=== PATIENT | male | born 1935 | race Caucasian/White ===

== ENCOUNTER 2016-11-16 08:04 | Inpatient (IN) ==
[2016-11-16 09:45] LABS: Basophils % 0.4 %; Eosinophils # 0.2 K/mcL (0.0-0.6); Eosinophils % 3.6 %; Hematocrit 28.7 % (37.5-50.1); Immature Granulocytes % 0.7 % (0-4); Lymphocytes % 23.1 %; Mean Corpuscular HGB Conc 31.4 g/dL (31.6-35.5); Mean Corpuscular Hemoglobin 25.9 pg (28.0-33.3); Mean Corpuscular Volume 82.5 fL (83.0-100.0); Mean Platelet Volume 9.7 fL (9.4-12.4); Monocytes # 0.4 K/mcL (0.0-1.3); Monocytes % 9.1 %; Neutrophils # 2.8 K/mcL (1.6-8.9); Platelet Count 280 K/mcL (140-400); Red Blood Count 3.48 M/mcL (4.19-5.50); Red Cell Distribution Width 13.9 % (11.5-14.5); Segmented Neutrophils % 63.1 %
[2016-11-16 09:50] LABS: INR 1.2; Prothrombin Time 13.1 Seconds (9.4-12.1)
[2016-11-16 09:57] LABS: Calcium 9.8 mg/dL (8.6-10.8); Potassium 3.8 mEq/L (3.5-4.5)
[2016-11-16] MEDS ORDERED: D5% in Water 1,000 ML IVC PRN (10:58)
[2016-11-16] MEDS ORDERED: Dextrose Gel 15 GM PO PRN ×2 (10:58)
[2016-11-16] MEDS ORDERED: *HR* Dextrose 50 % in Water (Syg) 50 ML SYRINGE IVP PRN (10:58)
--- NOTE | 2016-11-16 11:40 | Internal Medicine Consult Note ---
<Bello Bhatti - Last Filed: 11/16/16 20:17> Date of Encounter: 11/16/16 Internal Medicine - CN: HPI - Data of Consult Requesting Physician: Willi Cobb, - Consult Narrative History of present illness: Mr. Lynch is a 81 year old male Internal Medicine - CN: Meds Amoxicillin [Amoxil] 500 mg PO BID 11/05/16 [History] Aspirin [Lo-Dose Aspirin EC] 81 mg PO DAILY 11/05/16 [History] Carvedilol [Coreg] 25 mg PO BID 11/05/16 [History] Cholecalciferol (D-3) [Vitamin D] 1,000 mg PO DAILY 11/05/16 [History] Furosemide [Lasix] 80 mg PO BID 11/05/16 [History] HYDROcodone/Acet 5/325 mg [[place] 5-325 mg] 1 tab PO Q6H PRN #28 tab 11/05/16 [Rx ] Lisinopril [Zestril] 20 mg PO DAILY 11/05/16 [History] Multivit-Min/FA/Lycopen/Lutein [Centrum Silver Tablet] 1 tab PO DAILY 11/05/16 [ History] Tamsulosin [Flomax] 0.8 mg PO DAILY 11/05/16 [History] amLODIPine [Norvasc] 5 mg PO DAILY 11/05/16 [History] metFORMIN [Glucophage] 500 mg PO BIDWM 11/05/16 [History] Ferrous Sulfate [Iron] 325 mg PO TID 11/16/16 [History] Simvastatin [Zocor] 20 mg PO HS 11/16/16 [History] Allergies morphine Allergy (Verified 11/16/16 13:21) Hallucinating Has taken hydrocodone with no hallucinations Penicillins [PCN] Allergy (Verified 11/05/16 08:42) Hives Internal Medicine - CN: Exam - Constitutional Vitals: Temp Pulse Resp BP Pulse Ox 97.4 F L 59 18 103/54 97 11/16/16 15:57 11/16/16 19:00 11/16/16 15:57 11/16/16 19:00 11/16/16 15:57 Internal Medicine - CN: Reslt - Labs CBC & Chem 7: 11/16/16 09:18 11/16/16 09:18 Labs: Short CBC 11/16/16 Range/Units 09:18 WBC 4.5 (4.3-11.1) K/mcL Hgb 9.0 L (12.9-16.9) g/dL Hct 28.7 L (37.5-50.1) % Plt Count 280 (140-400) K/mcL Neutrophils # 2.8 (1.6-8.9) K/mcL BMP 11/16/16 09:18 Sodium 142 Potassium 3.8 Chloride 104 Carbon Dioxide 25 BUN 46 H Creatinine 2.23 H Glucose 102 H Calcium 9.8 - ABG Interpretation ABG results: PT/INR, D-dimer PT 13.1 Seconds (9.4-12.1) H 11/16/16 09:18 - Impressions Impressions Foot X-Ray 11/16/16 08:40 IMPRESSION: Other than a change in the configuration of the multiple high-density foci near the metatarsal-phalangeal joint of the 5th toe, there has been no gross interval change since the prior examination. Given the overlap of these high-density foci on the prior examination, a subtle increase in the bone destruction/ erosion at this site would be difficult to exclude entirely. D/ / Gary Mccrary / Gary Mccrary Interpreting Provider: Gary Mccrary Consult Discharge Plan - Plan Referrals: Eddie Mark MD [Primary Care Provider] - 11/20/16 11:00 am - Attending Attestation I examined this patient and my medical decision-making was reviewed with the Advanced Practice Nurse. I agree with the documented findings, disposition and treatment plan as described except to the extent set forth below. Continue holding metformin. I recommend not restarting this medication upon discharge due to chronic kidney disease with creatinine greater than 2 with baseline. Insulin sliding scale while in the hospital. He will need an ischemic workup if more invasive surgery is needed. <Aubree Jenkins - Last Filed: 11/16/16 22:53> Date of Encounter: 11/16/16 Time of Encounter: 11:32 - Assessment and Plan (1) Toe ulcer Current Visit: Yes Status: Acute Assessment and plan: Plan for patient to undergo angiogram today with vascular surgery and amputation of toe by Dr. Cobb. Qualifiers: Laterality: right Non-pressure ulcer stage: unspecified non-pressure ulcer stage Qualified Code(s): L97.519 - Non-pressure chronic ulcer of other part of right foot with unspecified severity (2) Type 2 diabetes mellitus Current Visit: Yes Status: Acute Assessment and plan: Hold metformin check blood sugars Q6hr sliding scale correction dose Q6hr hypoglycemic protocol. Qualifiers: Diabetes mellitus complication status: with unspecified complications Diabetes mellitus ad terminal makeup operator insulin use: without ad terminal makeup operator use Qualified Code( s): E11.8 - Type 2 diabetes mellitus with unspecified complications (3) Hypertension Current Visit: Yes Status: Acute Assessment and plan: Patient's blood pressure has been controlled since arrival. HR has been in the 50s. Will continue home doses of amlodipine. Reduce coreg to 6.25mg BID Hold coreg for HR < 60. Hold lisinopril and lasix to protect kidneys as patient undergoing angiogram today. Qualifiers: Hypertension type: essential hypertension Qualified Code(s): I10 - Essential (primary) hypertension (4) CAD (coronary artery disease) Current Visit: Yes Status: Acute Assessment and plan: Patient with CAD s/p 4-vessel CABG and stent placements. Patient denies any chest pain. EKG shows sinus bradycardia with 1st degree AV block, no ST elevations or depressions. Will continue beta naomie, aspirin, and statin. Qualifiers: Coronary Disease-Associated Artery/Lesion type: [place] artery [place] vs. transplanted heart: [place] heart Associated angina: angina presence unspecified Qualified Code(s): I25.10 - Atherosclerotic heart disease of [place] coronary artery without angina pectoris (5) CKD (chronic kidney disease) Current Visit: Yes Status: Chronic Assessment and plan: Patient with CKD, and follows with Dr. Mckeon. Today's creatinine of 2.23 is consistent with recent baseline. Patient getting fluids and mucomyst prior to angiogram to protect kidneys. Will hold morning dose of lasix and lisinopril. Recheck chemistry tomorrow. Qualifiers: Chronic kidney disease stage: stage 4 (severe) Qualified Code(s): N18.4 - Chronic kidney disease, stage 4 (severe) (6) DVT prophylaxis Current Visit: Yes Status: Acute Assessment and plan: Start heparin 5000u SQ TID after surgery. Internal Medicine - CN: HPI - Data of Consult Patient: known to practice within the last 3 years Consult date: 11/16/16 Requesting Physician: Willi Cobb, - Consult Narrative Reason for consult: management of medical conditions History of present illness: Mr. Lynch is a 81 year old male with hypertension, diabetes, hyperlipidemia, chronic kidney disease, coronary artery disease status post CABG and stent placement, peripheral vascular disease who presents to the Hospital day for management of his right foot ulcer. The plan is for Dr. Mejia of vascular surgery to perform a right leg angiogram, and for Dr. Cobb to amputate his right 5th toe. We have been consulted to manage his multiple medical conditions during his admission. Patient reports he does have intermittent pain in his right foot and toe, he describes as sharp, stabbing, dull, aching, and comes and goes. He denies any headache, lightheadedness, chest pain, palpitations, shortness of breath, nausea, vomiting, fever, chills, sweats, body aches. He is only able to walk short distances before he gets winded. Labs from today reveal anemia with hemoglobin of 9.0, consistent with recent results, chronic kidney disease with creatinine of 2.23, also consistent with previous results EKG showed sinus bradycardia with first-degree AV block heart rate of 51. On exam, patient alert and oriented, in no acute distress. Lungs are clear bilaterally to auscultation. Heart had regular rhythm, heart rate in the 50s, loud systolic murmur. Past Med Surg Social Fam HX - Past Medical History Medical history: arthritis, cardiomyopathy, CHF, coronary artery disease, diabetes, hypertension, myocardial infarction, renal disease, other Psychiatric history: no psych history - Past Surgical History Surgical History: arthroscopy, coronary bypass (CABG), hip replacement, knee replacement, orthopedic, other, other - Social History Smoking Status: Former smoker Smokeless Tobacco Status: No Alcohol use: none Drug use: none - Family History Paternal Family Member Ethnicity: Non- Living Status: Hx Family Cardiac Disorders: Yes Hx Family Respiratory Disorders: Yes - Constitutional Constitutional: no chills, no fever(s), no night sweats - EENT Eyes: no change in vision Ears: no ear pain, no tinnitus Nose, mouth and throat: no facial pain, no nasal congestion, no sinus pain - Cardiovascular Cardiovascular ROS IM: dyspnea on exertion, no chest pain, no diaphoresis, no dyspnea, no lightheadedness, no palpitations - Respiratory Respiratory: dyspnea on exertion, no cough, no dyspnea, no wheezing, no excessive phlegm production - Gastrointestinal Gastrointestinal: no abdominal pain, no constipation, no diarrhea, no nausea, no vomiting - Genitourinary Genitourinary ROS male: no dysuria - Integumentary Integumentary IM: skin ulcer, no rash - Neurological Neurological ROS: no dizziness, no tingling Internal Medicine - CN: Exam - Constitutional Vitals: Temp Pulse Resp BP Pulse Ox 97.5 F L 67 18 114/64 100 11/16/16 09:05 11/16/16 09:05 11/16/16 09:05 11/16/16 09:05 11/16/16 09:05 General appearance IM: Present: A&O X 3, pleasant, no acute distress - Head Head exam: Present: atraumatic, normocephalic - Eye Eye exam: Present: PERRL, conjuntiva pink, sclera anicteric - ENT ENT exam: Present: mucous membranes moist - Neck Neck exam general surgery: Present: normal inspection, supple, trachea midline - Respiratory Respiratory exam: Present: CTAB. Absent: accessory muscle use, rales, rhonchi, wheezes - Cardiovascular Cardiovascular exam IM: Present: bradycardia, +S1, +S2, systolic murmur - GI/Abdominal GI/Abdominal exam IM: Present: normal bowel sounds, soft, no peritoneal signs. Absent: distended, tenderness - Extremities Exam Extremities exam IM: Present: pedal edema, tenderness, warm, radial pulses palpable and symetrical Internal Medicine - CN: Reslt - Labs CBC & Chem 7: 11/16/16 09:18 11/16/16 09:18 Labs: All Lab Results (24 Hours) 11/16/16 11/16/16 11/16/16 Range/Units 09:18 09:18 09:18 WBC 4.5 (4.3-11.1) K/mcL RBC 3.48 L (4.19-5.50) M/mcL Hgb 9.0 L (12.9-16.9) g/dL Hct 28.7 L (37.5-50.1) % MCV 82.5 L (83.0-100.0) fL MCH 25.9 L (28.0-33.3) pg MCHC 31.4 L (31.6-35.5) g/dL RDW 13.9 (11.5-14.5) % Plt Count 280 (140-400) K/mcL MPV 9.7 (9.4-12.4) fL Immature Gran % 0.7 (0-4) % Seg Neutrophils % 63.1 % Lymphocytes % 23.1 % Monocytes % 9.1 % Eosinophils % 3.6 % Basophils % 0.4 % Neutrophils # 2.8 (1.6-8.9) K/mcL Lymphocytes # 1.0 (0.6-4.6) K/mcL Monocytes # 0.4 (0.0-1.3) K/mcL Eosinophils # 0.2 (0.0-0.6) K/mcL Basophils # 0.0 (0.0-0.2) K/mcL ESR 113 H (0-10) mm/hr PT 13.1 H (9.4-12.1) Seconds INR 1.2 Sodium (136-145) mEq/L Potassium (3.5-4.5) mEq/L Chloride (98-109) mEq/L Carbon Dioxide (19-29) mEq/L BUN (8-26) mg/dL Creatinine (0.72-1.25) mg/dL Est GFR ( Amer) (> 60) Est GFR (Non-Af Amer) (> 60) BUN/Creatinine Ratio (6-26) Glucose (70-99) mg/dL Calculated Osmolality (280-300) Calcium (8.6-10.8) mg/dL 11/16/16 Range/Units 09:18 WBC (4.3-11.1) K/mcL RBC (4.19-5.50) M/mcL Hgb (12.9-16.9) g/dL Hct (37.5-50.1) % MCV (83.0-100.0) fL MCH (28.0-33.3) pg MCHC (31.6-35.5) g/dL RDW (11.5-14.5) % Plt Count (140-400) K/mcL MPV (9.4-12.4) fL Immature Gran % (0-4) % Seg Neutrophils % % Lymphocytes % % Monocytes % % Eosinophils % % Basophils % % Neutrophils # (1.6-8.9) K/mcL Lymphocytes # (0.6-4.6) K/mcL Monocytes # (0.0-1.3) K/mcL Eosinophils # (0.0-0.6) K/mcL Basophils # (0.0-0.2) K/mcL ESR (0-10) mm/hr PT (9.4-12.1) Seconds INR Sodium 142 (136-145) mEq/L Potassium 3.8 (3.5-4.5) mEq/L Chloride 104 (98-109) mEq/L Carbon Dioxide 25 (19-29) mEq/L BUN 46 H (8-26) mg/dL Creatinine 2.23 H (0.72-1.25) mg/dL Est GFR ( Amer) 35 L (> 60) Est GFR (Non-Af Amer) 28 L (> 60) BUN/Creatinine Ratio 21 (6-26) Glucose 102 H (70-99) mg/dL Calculated Osmolality 306 H (280-300) Calcium 9.8 (8.6-10.8) mg/dL - ABG Interpretation ABG results: PT/INR, D-dimer PT 13.1 Seconds (9.4-12.1) H 11/16/16 09:18
[2016-11-16] MEDS: 0.9 % Sodium Chloride 1,000 ML IVC SCH ×2 (12:20→17:12)
[2016-11-16] MEDS: *HR* Acetylcysteine 20% 600 MG/3 ML ORAL SYRINGE PO SCH ×2 (12:20→21:56)
[2016-11-16] MEDS: Insulin LISPRO 300 UNITS/3 ML VIAL SQ SCH ×2 (12:49→17:12)
[2016-11-16] MEDS ORDERED: Naloxone 0.4 MG/ML INJ IVP PRN (13:07)
--- NOTE | 2016-11-16 13:19 | Podiatry History & Physical ---
History of Present Illness Chief complaint: Gangrene of small toe right foot HPI: Mr. Lynch is a 81 year old male with hx of foot ulcer sub#5 right with recent resection of #5 metatarsal head. Mr. Lynch exhibited discoloration/brusing of toe the night before procedure and thought he may have bumped his toe. Subsequent regression of toe/perfusion now with jose martin gangrene of toe #5. No chest pain no shortness of breath bowel/bladder dysfunction. C/o of right leg pain consistent with neuropathy and likely compromised arterial perfusion. See NIV studies with non-compressible vessels of right LE All Systems Reviewed: A 10-system review of systems was performed and is negative for pertinent findings except as documented above in the HPI. Past Med Surg Social Fam HX - Past Medical History Medical history: arthritis, cardiomyopathy, CHF, coronary artery disease, diabetes, hypertension, myocardial infarction, renal disease, other Psychiatric history: no psych history - Past Surgical History Surgical History: arthroscopy, coronary bypass (CABG), hip replacement, knee replacement, orthopedic, other, other - Social History Smoking Status: Former smoker Smokeless Tobacco Status: No Alcohol use: none Drug use: none - Family History Paternal Family Member Ethnicity: Non- Living Status: Hx Family Cardiac Disorders: Yes Hx Family Respiratory Disorders: Yes Medications and Allergies Amoxicillin [Amoxil] 500 mg PO BID 11/05/16 [History] Aspirin [Lo-Dose Aspirin EC] 81 mg PO DAILY 11/05/16 [History] Carvedilol [Coreg] 25 mg PO BID 11/05/16 [History] Cholecalciferol (D-3) [Vitamin D] 1,000 mg PO DAILY 11/05/16 [History] Furosemide [Lasix] 80 mg PO BID 11/05/16 [History] HYDROcodone/Acet 5/325 mg [[place] 5-325 mg] 1 tab PO Q6H PRN #28 tab 11/05/16 [Rx ] Lisinopril [Zestril] 20 mg PO DAILY 11/05/16 [History] Multivit-Min/FA/Lycopen/Lutein [Centrum Silver Tablet] 1 tab PO DAILY 11/05/16 [ History] Tamsulosin [Flomax] 0.8 mg PO DAILY 11/05/16 [History] amLODIPine [Norvasc] 5 mg PO DAILY 11/05/16 [History] metFORMIN [Glucophage] 500 mg PO BIDWM 11/05/16 [History] Ferrous Sulfate [Iron] 325 mg PO TID 11/16/16 [History] Simvastatin [Zocor] 20 mg PO HS 11/16/16 [History] Allergies morphine Allergy (Verified 11/16/16 13:21) Hallucinating Has taken hydrocodone with no hallucinations Penicillins [PCN] Allergy (Verified 11/05/16 08:42) Hives Physical Exam - Constitutional Vitals: Temp Pulse Resp BP Pulse Ox 97.8 F 56 18 118/43 100 11/16/16 12:33 11/16/16 12:50 11/16/16 12:33 11/16/16 12:33 11/16/16 12:33 General appearance: average body habitus, cooperative - Extremities Exam Extremities exam: Present: pedal edema - Expanded Lower Extremities Exam Foot/Toe exam: Present: tenderness at base of 5th metatarsal (Gangrene of #5 toe ) - Skin Additional comments: Dehisence of incision of 5th metatarsal head resection Results - Labs Result Diagrams: 11/16/16 09:18 11/16/16 09:18 Labs: Abnormal lab results RBC 3.48 M/mcL (4.19-5.50) L 11/16/16 09:18 Hgb 9.0 g/dL (12.9-16.9) L 11/16/16 09:18 Hct 28.7 % (37.5-50.1) L 11/16/16 09:18 MCV 82.5 fL (83.0-100.0) L 11/16/16 09:18 MCH 25.9 pg (28.0-33.3) L 11/16/16 09:18 MCHC 31.4 g/dL (31.6-35.5) L 11/16/16 09:18 ESR 113 mm/hr (0-10) H 11/16/16 09:18 PT 13.1 Seconds (9.4-12.1) H 11/16/16 09:18 BUN 46 mg/dL (8-26) H 11/16/16 09:18 Creatinine 2.23 mg/dL (0.72-1.25) H 11/16/16 09:18 Est GFR ( Amer) 35 (> 60) L 11/16/16 09:18 Est GFR (Non-Af Amer) 28 (> 60) L 11/16/16 09:18 Glucose 102 mg/dL (70-99) H 11/16/16 09:18 Calculated Osmolality 306 (280-300) H 11/16/16 09:18 C-Reactive Protein 33 mg/L (Less than 5) H 11/16/16 09:18 H & H 11/16/16 Range/Units 09:18 Hgb 9.0 L (12.9-16.9) g/dL Hct 28.7 L (37.5-50.1) % All other labs normal. - Diagnostic results Ankle/Foot x-ray: pending Assessment and Plan (1) Gangrene of toe Current visit: Yes Status: Acute Assessemt;#1 Gangrene of toe #5 right #2 DM with Angiopathy, neuropathy and nephropathy #3 Multiple co-morbidities as outlined in history. Plan: #1 Admit/Observation #2 IV ATB #3 Consultation with Medicine Service and Vascular Surgery Service. #4 Eventual amputation of toe and debridement of right foot wound.
[2016-11-16] MEDS ORDERED: *HR* Heparin 10,000 UNIT/10 ML VIAL ONE (13:45)
[2016-11-16] MEDS ORDERED: 0.9 % Sodium Chloride 1,000 ML ONE (13:46)
[2016-11-16] MEDS ORDERED: Heparin 1,000 UNITS/500 mL NS 500 ML ONE (13:46)
[2016-11-16] MEDS ORDERED: *HR* FentaNYL (PF) 100 MCG/2 ML VIAL ONE (14:03)
[2016-11-16] MEDS ORDERED: *HR* Midazolam HCl 2 MG/2 ML VIAL ONE (14:04)
--- NOTE | 2016-11-16 14:07 | Pre-Sedation Evaluation ---
Pre-sedation evaluation - Pre-sedation checklist Date of procedure: 11/16/16 Procedure: angiogram Recent Vitals: Last Vital Signs Temp 97.8 F 11/16/16 12:33 Pulse 56 11/16/16 12:50 Resp 18 11/16/16 12:33 BP 118/43 11/16/16 12:33 Pulse Ox 100 11/16/16 12:33 H&P (including ROS) documented in medical record: Yes Previous reaction to sedatives/anesthetics: Unknown Dietary Status: NPO 6 hours prior to procedure Dentition: No loose teeth or bridges Possible difficult airway: No ASA Classification *see protocol: CLASS III-Severe systemic disease Plan of Care: Pt appropriate candidate for procedure/moderate/conscious sedation , Risks/benefits of procedure/sedation discussed w/ patient/family
--- NOTE | 2016-11-16 14:09 | Vascular/Endovasc Consult Note ---
Date of Encounter: 11/16/16 Time of Encounter: 14:08 Assessment and Plan (1) PAD (peripheral artery disease) Current Visit: Yes Status: Chronic Patient has severe ischemia of right foot with gangrenous changes of right fifth toe. (2) Gangrene of toe Current Visit: Yes Status: Acute Status post right fifth metatarsal surgery with gangrenous changes of right fifth toe and discolored adjacent toes. (3) CKD (chronic kidney disease) Current Visit: Yes Status: Chronic Stage IV chronic kidney disease. Limb threatening ischemia right lower extremity. Qualifiers: Chronic kidney disease stage: stage 4 (severe) Qualified Code(s): N18.4 - Chronic kidney disease, stage 4 (severe) - History of Present Illness Consult date: 11/16/16 Requesting physician: Willi Cobb Consult reason: ischemic right foot Chief complaint: right foot ulcer History of present illness: Mr. Lynch is a 81 year old male Who was admitted earlier today for further evaluation and treatment of his right lower extremity. The patient had developed a swelling and abscess in the right foot. He went on to have a right fifth metatarsal resection. Postoperatively however the patient then developed cyanosis of his toes and then dry gangrene of the right fifth toe. Noninvasive testing demonstrated noncompressible vessels. Waveforms were markedly abnormal bilaterally. The patient was admitted now for angiography in an attempt to try to revascularize right lower extremity through an endovascular approach if at all possible. The patient is a high risk patient due to multiple chronic medical conditions including stage IV any disease and coronary artery and valvular disease. He also has profound arthritis and is status post multiple joint replacements as well as the formation of the spine with limited ambulation and ability. Past Med Surg Social Fam HX - Past Medical History Medical history: arthritis, cardiomyopathy, CHF, coronary artery disease, diabetes, hypertension, myocardial infarction, renal disease, other Psychiatric history: no psych history - Past Surgical History Surgical History: arthroscopy, coronary bypass (CABG), hip replacement, knee replacement, orthopedic, other, other - Social History Smoking Status: Former smoker Smokeless Tobacco Status: No Alcohol use: none Drug use: none - Family History Paternal Family Member Ethnicity: Non- Living Status: Hx Family Cardiac Disorders: Yes Hx Family Respiratory Disorders: Yes Medications and Allergies Amoxicillin [Amoxil] 500 mg PO BID 11/05/16 [History] Aspirin [Lo-Dose Aspirin EC] 81 mg PO DAILY 11/05/16 [History] Carvedilol [Coreg] 25 mg PO BID 11/05/16 [History] Cholecalciferol (D-3) [Vitamin D] 1,000 mg PO DAILY 11/05/16 [History] Furosemide [Lasix] 80 mg PO BID 11/05/16 [History] HYDROcodone/Acet 5/325 mg [[place] 5-325 mg] 1 tab PO Q6H PRN #28 tab 11/05/16 [Rx ] Lisinopril [Zestril] 20 mg PO DAILY 11/05/16 [History] Multivit-Min/FA/Lycopen/Lutein [Centrum Silver Tablet] 1 tab PO DAILY 11/05/16 [ History] Tamsulosin [Flomax] 0.8 mg PO DAILY 11/05/16 [History] amLODIPine [Norvasc] 5 mg PO DAILY 11/05/16 [History] metFORMIN [Glucophage] 500 mg PO BIDWM 11/05/16 [History] Ferrous Sulfate [Iron] 325 mg PO TID 11/16/16 [History] Simvastatin [Zocor] 20 mg PO HS 11/16/16 [History] Allergies morphine Allergy (Verified 11/16/16 13:21) Hallucinating Has taken hydrocodone with no hallucinations Penicillins [PCN] Allergy (Verified 11/05/16 08:42) Hives All Systems Review: A 10-system review of systems was performed and is negative for pertinent findings except as documented above in the HPI. Exam Vital Signs, Last 4 Hours Temp Pulse Resp BP Pulse Ox 11/16/16 12:50 56 11/16/16 12:33 97.8 F 59 18 118/43 100 General: Present: Conversant, No Apparent Distress, Well developed, Well nourished HEENT: Present: Atraumatic, Normocephaly, Trachea midline Neck: Absent: JVD Cardiac: Present: Reg Rate and Rhythm, Other (Holosystolic murmur 3 out of 6). Absent: No Murmur Lungs: Present: Normal Breath Sounds Neuro: Present: Alert and responsive, No focal deficits noted Abdomen: Present: Soft, Non-tender. Absent: Hepatosplenomegaly, Masses Vascular: Present: Pulse, absent (Nonpalpable popliteal and pedal pulses), Pulse , normal (Palpable femoral pulses), Other (Black right fifth toe. Suture line intact on distal right lateral forefoot patient has chronic edema of both feet and pretibial areas.) Skin: Present: No rashes noted on visualized skin Consult Discharge Plan - Plan Referrals: Eddie Mark MD [Primary Care Provider] - 11/20/16 11:00 am
--- NOTE | 2016-11-16 15:33 | Procedure Note ---
Date of procedure: 11/16/16 Pre-op diagnosis: Ischemic right foot Post-op diagnosis: same Procedure: Right lower extremity angiogram Additional complete exam Anesthesia: MAC Surgeon: Joe Man Condition: stable Disposition: same day (Patient will require right lower extremity bypass grafting for limb salvage)
[2016-11-16] MEDS ORDERED: Ondansetron 4 MG/2 ML VIAL IVP PRN (15:38)
--- NOTE | 2016-11-16 15:56 | Invasive Diagnostic Lab Proc ---
Name: Gary Lynch Date of Study: 11/16/2016 Date: 1935 Ht: 188.0 in Medical Record#: [id number] Age: 81 Wt: 94.5 lb Gender: Male BSA: 2.21 Order #: [id number] BMI: 26.74 Physicians Performing MD: Joe Man MD, FACS Referring MD: Referring MD: Staff Name Position Time In Lindy Cortez RT (R) Scrub Zay Reid RN Clinical Faculty Faith Medley RN Monitor Aubree Han RT (R) Jackie Adams RT Indications Non-healing Ulcer Procedures Performed ANGIOGRAM, EXT UNILAT S\\T\\I Add'l Complete exam Pre-Procedure Checklist Informed consent is complete signed and on chart. H\\T\\P is on chart. ID band is on and ID verified with patient. Patient NPO for procedure The procedure was described for the patient and questions were answered. Blood Pressure: 137/64 ECG is on chart. Rhythm: Sinus Bradycardia Plan of Care Patient will tolerate the procedure without complications. Adequate level of comfort will be maintained. Hemodynamics will remain stable Patient will recover from procedure without complications. Respiratory function will be maintained. Cardiac rhythm will remain stable. Patient temperature will be maintained. Patient and/or family have verbalized understanding of the procedure. Patient Education Chief Complaint/Reason for Test: Peripheral angiogram Developmental Category: Geriatric (65+ years) Learning Barriers: None Education Needs: Procedure Education Method: Verbal Information Taught: Peripheral angiogram Educational Evaluation: Able to repeat information Intravenous Access Time IV Size Location DC'd Fluid/Drip Rate Units RN 14:26 18g 1 06/03" Peripheral-Lock On Arrival Rt Arm 0.9NaCl 25 ml/hr Zay Reid RN Allergies Penicillins morphine Vital Signs Time BP Systolic BP Diastolic HR O2 Sats ASA 02:17 PM 114 64 67 100 02:17 PM 02:32 PM 02:48 PM 03:04 PM 03:20 PM 02:28 PM 141 58 55 100 02:32 PM 118 64 55 100 02:38 PM 124 72 55 100 02:42 PM 124 50 54 100 02:47 PM 126 74 55 100 02:52 PM 110 69 52 100 02:57 PM 130 73 57 100 03:02 PM 126 61 56 100 03:07 PM 104 80 60 100 03:13 PM 136 64 53 100 02:12 PM 137 64 63 95 02:17 PM 134 63 51 100 02:22 PM 132 65 52 100 03:18 PM 134 65 51 100 03:22 PM 146 68 58 100 03:27 PM 142 68 57 100 03:32 PM 108 78 68 84 Procedure Medications Time Medication Dose Units Method Route 02:17 PM Oxygen 2 L/min nasal cannula 02:17 PM Versed 1 mg Intravenous 02:17 PM Fentanyl 25 mcg Intravenous 02:21 PM Fentanyl 25 mcg Intravenous 02:27 PM Lidocaine 2% 7 ml Subcutaneous 03:31 PM Fentanyl 50 mcg Intravenous ASA Classification: CLASS III- Severe systemic disease (i.e. prior AMI, diabetes with vascular complications, morbid obesity) Jessie Score Preprocedure Postprocedure Activity 2- Moves 4 extremities sustained head lift Activity 2- Moves 4 extremities sustained head lift Circulation 2- SBP +/= 20 points of pre-anesthetic level Circulation 2- SBP +/= 20 points of pre-anesthetic level Consciousness 2- Awake and alert oriented x 3 Consciousness 2- Awake and alert oriented x 3 O2 Saturation 2- Able to maintain O2 satruation of 92% on room air O2 Saturation 2- Able to maintain O2 satruation of 92% on room air Respiratory 2- Able to deep breathe and cough well Respiratory 2- Able to deep breathe and cough well Total Score 10 Total Score 10 Contrast: Isovue 300- 150ml Contrast Amount: 54 ml Fluoro Dose: 977 mGy Procedure Log Time Note Entered By 02:14 PM 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 Bilateral groin prepped with Chloraprep by Jackie Adams RT, safety strap applied then patient was draped. Skin intact. [facility] 02:15 PM Physician arrived 14:15 [facility] PM Jony and aleksandr completed [facility] 02:15 PM Sign in performed according to hospital policy. [facility] 02:15 PM Procedure start 14:15 [facility] 02:17 PM 14:17 Oxygen at 2 L/min per nasal cannula by Zay Reid RN 02:17 PM 14:17 Versed 1 mg Intravenous Given by Zay Reid RN 02:17 PM 14:17 Fentanyl 25 mcg Intravenous Given by Zay Reid RN 02:17 PM Time: 14:17 Is patient comfortable and pain free?: Yes [facility]endra 02:17 PM Time: 14:17LOC: 5 = Fully awake and oriented or at pre-proc level [facility] 02:17 PM Patient charges- Angio tray pack, Pulse Oximetry and ACIST tubing and transducer [facility]lonny 02:22 PM 14:21 Fentanyl 25 mcg Intravenous Given by Zay Reid RN 02:22 PM Time out perfomed [facility] 02:27 PM 14:27 7 ml Lidocaine 2% to left groin Subcutaneous Given By Joe Man MD, FACS lparsley 02:27 PM Access obtained in the left femoral artery by percutaneous puncture. 5 Fr. 10 cm Terumo Springer sheath placed in right femoral artery l[facility]ley 02:28 PM 5Fr Omniflush catheter inserted over the wire l[facility]ley 02:28 PM Abdominal aorta angiography performed in AP contrast injected 4 mls. [facility]ley 02:30 PM Lower Extremity Unilateral angiography performed in AP contrast injected 5/20 mls. Right lower extremity l[facility]ley 02:32 PM Time: 14:17LOC: 4 = Oriented but drowsy [facility] 02:32 PM Time: 14:17 Is patient comfortable and pain free?: Yes [facility] 02:35 PM omniflush removed [facility]ley 02:34 PM Intervention started at this time l[facility]ley 02:37 PM Sheath exchanged for a 6 Fr 45 cm Terumo Destination sheath inserted into left femoral artery l[facility]ley 02:29 PM Catheter repositioned Setting up for stepping l[facility]ley 02:36 PM 0.035 Glidewire Angled 260cm guidewire advanced. lparsley 02:38 PM 5Fr 100cm Glidecath Angled-Taper guide catheter advanced lparsley 02:44 PM Guide wire removed intact l[facility]ley 02:45 PM 0.014 Victory 14, 30 gram 300cm guidewire advanced. lparsley 02:48 PM Time: 14:32 Is patient comfortable and pain free?: Yes l[facility]ley 02:48 PM Time: 14:32LOC: 4 = Oriented but drowsy l[facility]ley 02:49 PM Guide wire removed intact l[facility]ley 02:49 PM glidewire reinserted lparsley 02:54 PM Guide wire removed intact l[facility]ley 02:55 PM 0.035 Glidewire Angled Stiff 180cm guidewire advanced. l[facility]ley 03:04 PM Time: 14:48LOC: 4 = Oriented but drowsy [facility] 03:04 PM Time: 14:48 Is patient comfortable and pain free?: Yes [facility] 03:04 PM Guide wire removed intact l[facility]ley 03:04 PM victory wire reinserted l[facility]ley 03:07 PM Current device unable to cross lesion at this time l[facility]ley 03:07 PM Guide wire removed intact l[facility]ley 03:08 PM 2ml of contrast hand injected lparsley 03:09 PM Lower Extremity Unilateral angiography performed in AP contrast injected 5/10 mls. l[facility]ley 03:13 PM Lower Extremity Unilateral angiography performed in AP contrast injected 5/10 mls. l[facility]ley 03:14 PM Lower Extremity Unilateral angiography performed in AP contrast injected 5/10 mls. l[facility]ley 03:15 PM Catheter removed [facility] 03:18 PM Procedure completed at 15:18 l[facility]ley 03:19 PM Sign Out completed: Radiation Dose 977.20 mGy Fluoro Time: 18 minutes. Isovue 300- 150ml contrast 54 ml given by Joe Man MD, FACS. Complications: None. Confirmed administered medications:Yes [facility] 03:19 PM Time: 15:04 Is patient comfortable and pain free?: Yes [facility] 03:20 PM Time: 15:04LOC: 4 = Oriented but drowsy l[facility]ley 03:20 PM Isovue 300- 150ml,1 bottle(s) used. lparsley 03:21 PM Arterial sheath pulled using manual compression and V+Pad for 15 minutes by Lindy Cortez RT (R) l[facility]lonny 03:21 PM Post Blood Pressure: 134/65 lparsley 03:21 PM Post EKG: Sinus Bradycardia lparsley 03:21 PM 15:21 Post Pulses: Bilateral DP \\T\\ PT Doppler. [facility]ley 03:21 PM Information taught: [facility]ipheral [facility]ogram [facility] 03:21 PM Education needs: Procedure, Plan of Care, and Safe \\T\\ Effective Use of Medications [facility] 03:21 PM Learning barriers: None [facility] 03:21 PM Education methods: Verbal [facility] 03:21 PM Education evaluation: Able to repeat information [facility] 03:21 PM Patient pain level 0/10 [facility] 03:27 PM Family placed in consult room. [facility] 03:31 PM 15:31 Fentanyl 50 mcg Intravenous Given by Zay Reid RN [facility] 03:33 PM Fluoro Time: 18 minutes [facility] 03:33 PM Isovue 300- 150ml contrast 54 ml given by Joe Man MD, FACS [facility] 03:34 PM Radiation Dose 977.20 mGy [facility] 03:34 PM Site status No bleeding/hematoma - Rt Groin as reported by Lindy Cortez RT (R) at 15:34 [facility] 03:34 PM [facility]ite [facility] 03:35 PM Time: 15:19 Is patient comfortable and pain free?: Yes [facility] 03:35 PM Report given to Tod OLGUIN. Pt taken to , Room # 9 15:34 [facility] 03[facility] PM Time: 15:20LOC: 5 = Fully awake and oriented or at pre-proc level [facility] 03:35 PM Delay to floor: No [facility] 03:35 PM Pt [facility] 03:35 PM Family placed in consult room. [facility] 03:35 PM Patient out of room 15:35 [facility] 03:35 PM Complications: None [facility] 03:36 PM Diagram Region: Lower Extremity Arteries Anatomical Region: [id number]% Lesion in Right Superficial Femoral Intervention done: 0 (1=yes, 0=no) [facility] 03:36 PM Diagram Region: Lower Extremity Arteries Anatomical Region: [id number]% Lesion in Distal Right Popliteal Intervention done: 0 (1=yes, 0=no) [facility] 02:28 PM HR=55 bpm, JEIV=785/58 mmhg, PpA7=104.0 %, Resp=15 B/min, Comment=Sinus Ezra 02:32 PM HR=55 bpm, RZBM=638/64 mmhg, EiG1=574.0 %, Resp=11 B/min, Comment=Sinus Ezra 02:38 PM HR=55 bpm, LXXF=574/72 mmhg, DeP5=822.0 %, Resp=9 B/min, Comment=Sinus Ezra 02:42 PM HR=54 bpm, LOHV=638/50 mmhg, EiD5=619.0 %, Resp=20 B/min, Comment=Sinus Ezra 02:47 PM HR=55 bpm, HUQO=180/74 mmhg, MzM3=975.0 %, Resp=15 B/min, Comment=Sinus Ezra 02:52 PM HR=52 bpm, VQPD=652/69 mmhg, UqE8=523.0 %, Resp=15 B/min, Comment=Sinus Ezra 02:57 PM HR=57 bpm, QUOH=457/73 mmhg, LdV6=927.0 %, Resp=13 B/min, Comment=Sinus Ezra 03:02 PM HR=56 bpm, ILQU=986/61 mmhg, VuB4=564.0 %, Resp=15 B/min, Comment=Sinus Ezra 03:07 PM HR=60 bpm, XTYJ=304/80 mmhg, BxM0=626.0 %, Resp=17 B/min, Comment=Sinus Ezra 02:11 PM Case Start 02:11 PM Vitals capture started with the following parameters, Patient=Adult, Interval=5 min, Initial Cynklqdu=427 mmHg, Deflation Rate=5 mmHg, Cuff placed on Right Arm 02:12 PM HR=63 bpm, QBKP=886/64 mmhg, SpO2=95.0 %, Resp=35 B/min 02:13 PM Recorded ECG: HR=61 Condition=Condition 1 02:15 PM PVIStat 02:17 PM HR=51 bpm, SPVB=346/63 mmhg, GuE9=077.0 %, Resp=3 B/min, Comment=Sinus Ezra 02:22 PM HR=52 bpm, QIGA=608/65 mmhg, OfB3=422.0 %, Resp=9 B/min, Comment=Sinus Ezra 03:13 PM HR=53 bpm, QIDO=269/64 mmhg, PmQ5=960.0 %, Resp=20 B/min, Comment=Sinus Ezra 03:18 PM HR=51 bpm, SOJN=423/65 mmhg, FiV4=508.0 %, Resp=18 B/min, Comment=Sinus Ezra 03:22 PM HR=58 bpm, PQQR=198/68 mmhg, LdX7=242.0 %, Resp=13 B/min, Comment=Sinus Ezra 03:27 PM HR=57 bpm, JKPR=060/68 mmhg, LgH7=367.0 %, Resp=10 B/min, Comment=Sinus Ezra 03:32 PM HR=68 bpm, ASOG=353/78 mmhg, SpO2=84.0 %, Resp=11 B/min, Comment=Sinus Ezra Peripheral Anatomy Vessel Pathology Lesion Stenosis Aneurysm Diameter Thrombus Type Right Superficial Femoral Lesion 100 Right Popliteal Lesion 80 Post Procedure Information Blood Pressure: 134/65 mmHg Rhythm: Sinus Bradycardia Post procedure instructions given Site Checks Time Location Status Staff Sheath In? Note 3:34:00 PM Rt Lindy Vallejo (R) Pulses Time Site Pre Procedure Post Procedure Note 11/16/2016 2:26:00 PM Bilateral DP \\T\\ PT Doppler 3:21:00 PM Bilateral DP \\T\\ PT Doppler Updated by Faith Medley RN on 11/16/2016 3:48:44 PM electronically signed on 11/16/2016 3:49:15 PM with status of Final
--- NOTE | 2016-11-16 16:49 | Cardiology Consult Note ---
<Jossue Lacy Chayito - Last Filed: 11/16/16 16:47> Date of Encounter: 11/16/16 Time of Encounter: 14:47 Assessment and Plan (1) Pre-operative cardiovascular examination Current Visit: Yes Status: Acute Mr. Lynch is found to have a ETHNOARCHAEOLOGIST of the right SFA. Dr. Man is planning for RLE bypass graft tomorrow under general anesthesia. He has a history of remote PA and tissue AVR. Follows with Dr. Schroeder in [place]. He describes dyspnea on exertion. No recent ischemic evaluation. Last [facility] 05/2012 showed 4/4 patent bypass grafts. Recommend pharmacologic non-exercise stress test in the morning. Patient agrees with plan. Further recommendation to follow. (2) CAD (coronary artery disease) Current Visit: Yes Status: Acute H/o PA and 4 vessel CABG in 1994. Continue asa, statin, and bb lety-operatively . Qualifiers: Coronary Disease-Associated Artery/Lesion type: [place] artery [place] vs. transplanted heart: [place] heart Associated angina: angina presence unspecified Qualified Code(s): I25.10 - Atherosclerotic heart disease of [place] coronary artery without angina pectoris Discussion w patient/family: The assessment and plan as outlined above was discussed with the patient and/or family members who expressed understanding and agreement. All questions were answered. Thank you for involving us in the care of your patient. Please call with any questions. History of Present Illness Consult date: 11/16/16 Requesting physician: Joe Man Consult reason: Pre-operative cardiovascular assessment Chief complaint: Right small toe ulcer History of present illness: Mr. Lynch is a 81 year old male who presented as direct admit by Dr. Cobb for a procedure on his right small toe ulcer. He underwent angiogram with Dr. Man today and was found to have ETHNOARCHAEOLOGIST of the SFA and is recommended for bypass. Cardiology consulted for pre-operative cardiovascular assessment. He has a past medical history of CAD s/p PA , s/p 4 vessel CABG in 1994, and bioprosthetic AVR, HTN, HLD, CKD, carotid artery disease, and diabetes type II. He denies chest pain. He does c/o increasing dyspnea on exertion. Reports activity is minimal due to foot pain and SOB. Denies orthpnea, PND, or edema. Denies palpitations. Past Med Surg Social Fam HX - Past Medical History Attestation: Yes The following information was validated with the patient. Medical history: arthritis, cardiomyopathy, coronary artery disease, diabetes, hypertension, myocardial infarction, renal disease, other Psychiatric history: no psych history - Past Surgical History Surgical History: arthroscopy, coronary bypass (CABG), hip replacement, knee replacement, orthopedic, other, other - Social History Smoking Status: Former smoker Smokeless Tobacco Status: No Alcohol use: none Drug use: none - Family History Paternal Family Member Ethnicity: Non- Living Status: Hx Family Cardiac Disorders: Yes Hx Family Respiratory Disorders: Yes Medications and Allergies Amoxicillin [Amoxil] 500 mg PO BID 11/05/16 [History] Aspirin [Lo-Dose Aspirin EC] 81 mg PO DAILY 11/05/16 [History] Carvedilol [Coreg] 25 mg PO BID 11/05/16 [History] Cholecalciferol (D-3) [Vitamin D] 1,000 mg PO DAILY 11/05/16 [History] Furosemide [Lasix] 80 mg PO BID 11/05/16 [History] HYDROcodone/Acet 5/325 mg [[place] 5-325 mg] 1 tab PO Q6H PRN #28 tab 11/05/16 [Rx ] Lisinopril [Zestril] 20 mg PO DAILY 11/05/16 [History] Multivit-Min/FA/Lycopen/Lutein [Centrum Silver Tablet] 1 tab PO DAILY 11/05/16 [ History] Tamsulosin [Flomax] 0.8 mg PO DAILY 11/05/16 [History] amLODIPine [Norvasc] 5 mg PO DAILY 11/05/16 [History] metFORMIN [Glucophage] 500 mg PO BIDWM 11/05/16 [History] Ferrous Sulfate [Iron] 325 mg PO TID 11/16/16 [History] Simvastatin [Zocor] 20 mg PO HS 11/16/16 [History] Allergies acetaminophen [From Percocet] Allergy (Verified 11/17/16 09:41) Hallucinating Hydromorphone [From Dilaudid] Allergy (Verified 11/17/16 09:41) Hallucinating morphine Allergy (Verified 11/16/16 13:21) Hallucinating Has taken hydrocodone with no hallucinations Oxycodone [From Percocet] Allergy (Verified 11/17/16 09:41) Hallucinating Penicillins [PCN] Allergy (Verified 11/05/16 08:42) Hives All Systems Review: A 10-system review of systems was performed and is negative for pertinent findings except as documented above in the HPI. Physical Examination Vital Signs, Last 4 Hours Temp Pulse Resp BP Pulse Ox 11/16/16 15:57 97.4 F L 63 18 128/88 97 11/16/16 12:50 56 General: Conversant, No Apparent Distress, Other (slight tremor noted) HEENT: Atraumatic, Normocephaly, Mucus Membranes Moist Neck: No JVD, Normal carotid pulses Cardiac: Reg Rate and Rhythm, Normal S1 and S2, No Murmur Lungs: Normal Breath Sounds, No Wheeze, Rales, Rhonchi Neuro: Alert and responsive, No focal deficits noted Abdomen: Soft, Non-Tender Skin: No rashes noted on visualized skin Musculoskeletal: No Chest Wall Tenderness Extremities: No Cyanosis, Other (Trace BLE edema with faint 1/1DP pulse on left. ) Results 11/16/16 09:18 11/16/16 09:18 Lab Results 11/16/16 11/16/16 11/16/16 09:18 09:18 09:18 WBC 4.5 Hgb 9.0 L Hct 28.7 L Plt Count 280 INR 1.2 Sodium 142 Potassium 3.8 Chloride 104 Carbon Dioxide 25 BUN 46 H Creatinine 2.23 H Glucose 102 H Calcium 9.8 - Imaging and Cardiology Stress Test: pending Echo: report reviewed Consult Discharge Plan - Plan Referrals: Rajendra Mai MD [Non-Partnered Physician] - Eddie Mark MD [Primary Care Provider] - 11/20/16 11:00 am Joe Man MD [Partnered Physician] - 12/09/16 9:45 am <Yolande Singh - Last Filed: 11/17/16 17:19> Date of Encounter: 11/17/16 Assessment and Plan Discussion w patient/family: The assessment and plan as outlined above was discussed with the patient and/or family members who expressed understanding and agreement. All questions were answered. Thank you for involving us in the care of your patient. Please call with any questions. History of Present Illness History of present illness: Mr. Lynch is a 81 year old male All Systems Review: A 10-system review of systems was performed and is negative for pertinent findings except as documented above in the HPI. Results 11/17/16 04:58 11/17/16 04:58 Lab Results 11/17/16 11/17/16 04:58 04:58 WBC 4.0 L Hgb 7.9 L Hct 24.7 L Plt Count 220 Sodium 141 Potassium 4.2 Chloride 109 Carbon Dioxide 24 BUN 38 H Creatinine 1.79 H Glucose 106 H Calcium 8.6 - Attending Attestation I examined this patient and my medical decision-making was reviewed with the FINISH MILL OPERATOR/PA/Advanced Practice Nurse/Resident Physician. I agree with the documented findings, disposition and treatment plan. Mr. Lynch is planning to undergo RLE bypass graft with Dr. Man under general anesthesia. He has a history of remote PA and tissue AVR. His last [facility] evaluation was in April at [place] demonstrating patent bypass grafts and in which no intervention was recommended. He underwent a stress test this morning demonstrating infarct without ischemia, gated EF 41%. 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 He does not endorse chest pain. We have discussed these findings with Dr. Man. He will be at moderate but acceptable risk for the procedure. No further testing is warranted. Continue BB perioperatively.
[2016-11-16] MEDS: Piperacillin/Tazobactam 3.375 GM in D5% in Water (Mini-Bag+) 100 ML IVPB SCH (17:13)
--- NOTE | 2016-11-16 17:18 | Invasive Diagnostic Lab ---
Name: Gary Lynch Date of Study: 11/16/2016 Date: 1935 Ht: 188.0 in Medical Record#: [id number] Age: 81 Wt: 94.5 lb Gender: Male BSA: 2.21 Order #: [id number] Fluoro: 977 mGy BMI: 26.74 Procedure MD: Joe Man MD, FACS Referring MD: Willi Cobb DPM Referring MD: Eddie Mark MD Procedures Performed: ANGIOGRAM, EXT UNILAT S\T\I Add'l Complete exam Indications: Non-healing Ulcer Impressions: There is moderate calcification in the Abdominal aorta. There is moderate calcification in the Right Common Iliac and Right External Iliac. The Right Common Iliac and Right External Iliac have non significant disease. The right Superficial Femoral is occluded. The right popliteal has significant disease. The Right Ant. Tibial, Right Tibioperoneal Trunk, Right Post. Tibial, and Right Peroneal have non-significant disease in the upper 2/3's of the calf. Recommendations: Recommend urgent bypass surgery of the right femoral-popliteal arteries for limb salvage. History/ Risk Factors: Diabetes Dyslipidemia Hypertension Renal Failure Hx CHF Recent DE Technique: After informed consent was obtained the patient was placed on the angiographic table. The access areas were prepped and draped in the usual sterile fashion. A timeout protocol was observed. Access was obtained in the left femoral artery. The Omni Flush catheter was advanced over a wire and an abdominal aortogram was obtained. The injection catheter was then repositioned at the distal External Iliac. A unilateral - right leg lower extremity runoff was then performed. A critical lesion was seen on the angiogram and a decision was made to proceed to an intervention. Diagnostic sheath was exchanged for a 6 Fr. 45 cm. A wire was advanced through the sheath and unsuccessfully advanced through the lesion. The glide catheter was selectively placed into the right Profunda and the following images were obtained: Right Popliteal. The catheter was selectively placed into the Right Profunda and the following images were obtained: Right Tibioperoneal Trunk, Right Post. Tibial, Right Ant. Tibial, and Right Peroneal The sheath was removed and hemostasis was achieved with the following measures: Manual Pressure and Closure pad. Vessel Findings: * Lower Extremity Arteries There is a lesion present with 100% stenosis, in the Right Superficial Femoral. The lesion has heavy calcification present. No intervention was performed on this Lesion as the wire could not pass thru the occlusion. There is a lesion present with 80% stenosis, in the Distal Right Popliteal. No intervention was performed on this Lesion. Lesions: Right Superficial Femoral Stenosis: 100% Distal Right Popliteal Stenosis: 80% Total Contrast: Isovue 300- 150ml 54mls Updated by Joe Man MD, FACS on 11/16/2016 5:08:11 PM Joe Man MD electronically signed on 11/16/2016 5:11:36 PM with status of Final
--- NOTE | 2016-11-16 17:29 | Event Note ---
Date of Encounter: 11/16/16 Time of Encounter: 17:27 Patient seen and evaluated. Spoke with Dr. Man this afternoon and he performed an angiogram. Recommend hydration and mucomyst to minimize chance of VERENICE. He is at high risk for VERENICE given comorbidities and this was explained to the patient. Full note to follow.
--- NOTE | 2016-11-16 18:05 | Electrocardiograph Report ---
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
--- NOTE | 2016-11-16 19:03 | Anesthesia Evaluation PreOp ---
<Willi Spangler - Last Filed: 11/16/16 19:22> Date of Encounter: 11/16/16 Time of Encounter: 19:00 - Past History Planned Operation: Right Fem-pop Bypass Cardiac History: DC, HTN, Cardiac Surgery (CABG x 4 1994 , AVR replacement, carotid dx), Cardiac Stent (x2 1995, 1996), Other (Cardiomyopathy) Pulmonary History: MARY Dx Other Medical History: Renal (CRD), Diabetes Type II Anesthesia History: Past Anesthesia (Back surgery x 5, Cash. Knee Toe amp 11/05, shoulder scope) Alcohol Use: none Drug use: none Medications and Allergies Amoxicillin [Amoxil] 500 mg PO BID 11/05/16 [History] Aspirin [Lo-Dose Aspirin EC] 81 mg PO DAILY 11/05/16 [History] Carvedilol [Coreg] 25 mg PO BID 11/05/16 [History] Cholecalciferol (D-3) [Vitamin D] 1,000 mg PO DAILY 11/05/16 [History] Furosemide [Lasix] 80 mg PO BID 11/05/16 [History] HYDROcodone/Acet 5/325 mg [[place] 5-325 mg] 1 tab PO Q6H PRN #28 tab 11/05/16 [Rx ] Lisinopril [Zestril] 20 mg PO DAILY 11/05/16 [History] Multivit-Min/FA/Lycopen/Lutein [Centrum Silver Tablet] 1 tab PO DAILY 11/05/16 [ History] Tamsulosin [Flomax] 0.8 mg PO DAILY 11/05/16 [History] amLODIPine [Norvasc] 5 mg PO DAILY 11/05/16 [History] metFORMIN [Glucophage] 500 mg PO BIDWM 11/05/16 [History] Ferrous Sulfate [Iron] 325 mg PO TID 11/16/16 [History] Simvastatin [Zocor] 20 mg PO HS 11/16/16 [History] Allergies acetaminophen [From Percocet] Allergy (Verified 11/17/16 09:41) Hallucinating Hydromorphone [From Dilaudid] Allergy (Verified 11/17/16 09:41) Hallucinating morphine Allergy (Verified 11/16/16 13:21) Hallucinating Has taken hydrocodone with no hallucinations Oxycodone [From Percocet] Allergy (Verified 11/17/16 09:41) Hallucinating Penicillins [PCN] Allergy (Verified 11/05/16 08:42) Hives - Meds/Allergy Pre-op Review Medications Reviewed: Yes Allergies Reviewed: Yes Beta Blockers on Current Med List: Yes If Beta Blockers taken, Date/Time (Last Dose taken): 11/16/2016 @ 17:14 Anesthesia Results - Labs 11/16/16 09:18 11/16/16 09:18 [facility] 05/2012 showed 4 patent grafts 11/17 Pending stress in Am Anesthesia Exam O2 Sat Height 1.88 m Weight 94.517 kg O2 Sat by Pulse Oximetry 97 O2 Sat by Pulse Oximetry 100 O2 Sat by Pulse Oximetry 100 Vital Signs Temp Pulse Resp BP Pulse Ox 97.5 F L 67 18 114/64 100 11/16/16 09:05 11/16/16 09:05 11/16/16 09:05 11/16/16 09:05 11/16/16 09:05 Vital Signs/O2 Sat, Most Current Temp Pulse Resp BP Pulse Ox 97.4 F L 79 18 119/61 97 11/16/16 15:57 11/16/16 18:00 11/16/16 15:57 11/16/16 18:00 11/16/16 15:57 Height: 6'2'' Weight: 208# NPO (# of Hours): > 8 hrs Pain Scale: 0 Pain Scale Used: Numeric (1 - 10) - HEENT Pupil (Motor): Pupils equal, EOMI Mallampati: I Teeth: Normal Oral Opening: Greater than 3 - DIAL SCREW ASSEMBLER LOC: Oriented DIAL SCREW ASSEMBLER Motor: Normal RUE, Normal LUE, Normal RLE, Normal LLE, Normal Face DIAL SCREW ASSEMBLER Sensory: Normal: RUE, LUE, RLE, LLE, Face - Cardiac Rhythm: Regular Murmur: None JVD: No Carotid Bruit: No - Pulmonary Breath Sounds: bilateral Clear Respiratory Effort: Symmetrical Anesthesia Assess/Plan ASA Score: 3 Modified Roosevelt Scale for Level of Consciousness: Cooperative, oriented, and tranquil Anesthetic Plan: General Autologous Blood: Yes Monitoring Plan: Standard Monitors, A-Line Recovery Plan: PACU <Oz Cruz - Last Filed: 11/17/16 14:30> Date of Encounter: 11/17/16 - Meds/Allergy Pre-op Review If Beta Blockers taken, Date/Time (Last Dose taken): 11/16/2016 @ 17:14, 2016 at 1014 Anesthesia Results - Labs 11/17/16 04:58 11/17/16 04:58 - Imaging EKG: report reviewed (11/16/2016 SB with 1st degree AV block) Additional studies: 11/17/2016 Stress LVEF 41% frequent PVC's and PAC's noted during stress and early recovery NSST wave changes were noted with ragadenoson large sized, moderate-severe intensity, fixed perfusion defect involving the basal-apical inferior wall, basal-mid inferolateral wall, and apex findings c/w DC involving inferor wall, inferolateral wall and apex there is no evidence of reversible myocardial ischemia
[2016-11-17] MEDS: Piperacillin/Tazobactam 3.375 GM in D5% in Water (Mini-Bag+) 100 ML IVPB SCH ×2 (00:19→10:16)
[2016-11-17] MEDS: Insulin LISPRO 300 UNITS/3 ML VIAL SQ SCH ×3 (00:24→12:19)
[2016-11-17] MEDS: 0.9 % Sodium Chloride 1,000 ML IVC SCH ×3 (00:28→20:48)
[2016-11-17 05:09] LABS: Basophils % 0.2 %; Eosinophils # 0.2 K/mcL (0.0-0.6); Hematocrit 24.7 % (37.5-50.1); Hemoglobin 7.9 g/dL (12.9-16.9); Immature Granulocytes % 0.7 % (0-4); Lymphocytes # 0.7 K/mcL (0.6-4.6); Lymphocytes % 16.6 %; Mean Corpuscular Hemoglobin 26.4 pg (28.0-33.3); Mean Corpuscular Volume 82.6 fL (83.0-100.0); Mean Platelet Volume 9.9 fL (9.4-12.4); Monocytes # 0.4 K/mcL (0.0-1.3); Monocytes % 10.1 %; Neutrophils # 2.8 K/mcL (1.6-8.9); Platelet Count 220 K/mcL (140-400); Red Blood Count 2.99 M/mcL (4.19-5.50); Red Cell Distribution Width 14.4 % (11.5-14.5); Segmented Neutrophils % 68.4 %
[2016-11-17 05:25] LABS: Calcium 8.6 mg/dL (8.6-10.8)
[2016-11-17 05:26] LABS: Potassium 4.2 mEq/L (3.5-4.5)
[2016-11-17] MEDS ORDERED: Regadenoson 0.4 MG/5 ML SYRINGE IVP ONE (06:22)
[2016-11-17] MEDS ORDERED: amLODIPine 5 MG TABLET PO SCH ×2 (09:00→10:27)
[2016-11-17] MEDS ORDERED: Aspirin Enteric Coated 81 MG Tablet PO SCH (09:00)
--- NOTE | 2016-11-17 10:28 | Internal Med Progress Note ---
Date of Encounter: 11/17/16 Time of Encounter: 10:26 - Subjective Interval history: Pt seen and examined at bedside. Resting in bed and denies any discomfort. S/P Nuclear stress test.Denies any chest pain, sob at this time. Foot pain adequately controlled at this time. Medicine consulted for management with co-morbidities - Assessment and Plan (1) Toe ulcer Current Visit: Yes Status: Acute Assessment and plan: Plan as per primary team (podiatry) and vascular surgery s/p angiogram noted to have drop in H&H, will repeat H&H later today and transfuse for Hgb<7 Qualifiers: Laterality: right Non-pressure ulcer stage: unspecified non-pressure ulcer stage Qualified Code(s): L97.519 - Non-pressure chronic ulcer of other part of right foot with unspecified severity (2) Type 2 diabetes mellitus Current Visit: Yes Status: Acute Assessment and plan: Hold metformin check blood sugars Q6hr while NPO and change to ACHS once diet is resumed sliding scale correction dose Q6hr hypoglycemic protocol. Qualifiers: Diabetes mellitus complication status: with unspecified complications Diabetes mellitus skilled nursing insulin use: without roller cleaner use Qualified Code( s): E11.8 - Type 2 diabetes mellitus with unspecified complications (3) Hypertension Current Visit: Yes Status: Acute Assessment and plan: BP within acceptable range continue to closely monitor added Parameters to Amlodipine and coreg dosing continue to hold Lasix and Lisinopril Qualifiers: Hypertension type: essential hypertension Qualified Code(s): I10 - Essential (primary) hypertension (4) CAD (coronary artery disease) Current Visit: Yes Status: Acute Assessment and plan: Patient with CAD s/p 4-vessel CABG and stent placements. Patient denies any chest pain. EKG shows sinus bradycardia with 1st degree AV block, no ST elevations or depressions. Will continue beta naomie, aspirin, and statin. Cardiology on board for clearance for surgery Qualifiers: Coronary Disease-Associated Artery/Lesion type: [place] artery [place] vs. transplanted heart: [place] heart Associated angina: angina presence unspecified Qualified Code(s): I25.10 - Atherosclerotic heart disease of [place] coronary artery without angina pectoris (5) CKD (chronic kidney disease) Current Visit: Yes Status: Chronic Assessment and plan: Renal function improved from previous day continue to hold Lasix and Lisinopril at this time Nephrology on board Qualifiers: Chronic kidney disease stage: stage 4 (severe) Qualified Code(s): N18.4 - Chronic kidney disease, stage 4 (severe) (6) DVT prophylaxis Current Visit: Yes Status: Acute Assessment and plan: Heparin sQ after surgery - Constitutional Vitals: Temp Pulse Resp BP Pulse Ox 98.4 F 79 14 115/44 97 11/17/16 07:25 11/17/16 10:24 11/17/16 07:25 11/17/16 10:24 11/17/16 10:24 General appearance: Present: A&O X 3, pleasant, no acute distress - Head Head exam: Present: atraumatic, normocephalic - Eye Eye exam: Present: normal appearance, conjuntiva pink, sclera anicteric - Respiratory Respiratory exam: Present: CTAB. Absent: accessory muscle use, rales, rhonchi, wheezes - Cardiovascular Cardiovascular exam: Present: RRR, +S1, +S2. Absent: diastolic murmur, gallop, rubs, systolic murmur - GI/Abdominal GI/Abdominal exam: Present: normal bowel sounds, soft, no peritoneal signs. Absent: distended, tenderness - Extremities Exam Extremities exam: Present: pedal edema. Absent: calf tenderness Additional comments: Right foot wrapped in dressing - Neurological Exam Neurological exam: Present: alert, oriented X3 - Psychiatric Psychiatric exam: Present: normal affect, normal mood Internal Medicine: Result - Labs CBC & Chem 7: 11/17/16 04:58 11/17/16 04:58 Labs: Short CBC 11/17/16 Range/Units 04:58 WBC 4.0 L (4.3-11.1) K/mcL Hgb 7.9 L (12.9-16.9) g/dL Hct 24.7 L (37.5-50.1) % Plt Count 220 (140-400) K/mcL Neutrophils # 2.8 (1.6-8.9) K/mcL BMP 11/17/16 04:58 Sodium 141 Potassium 4.2 Chloride 109 Carbon Dioxide 24 BUN 38 H Creatinine 1.79 H Glucose 106 H Calcium 8.6 - ABG Interpretation ABG results: PT/INR, D-dimer PT 13.1 Seconds (9.4-12.1) H 11/16/16 09:18 - Impressions Impressions Foot X-Ray 11/16/16 08:40 IMPRESSION: Other than a change in the configuration of the multiple high-density foci near the metatarsal-phalangeal joint of the 5th toe, there has been no gross interval change since the prior examination. Given the overlap of these high-density foci on the prior examination, a subtle increase in the bone destruction/ erosion at this site would be difficult to exclude entirely. D/ / Gary Mccrary / Gary Mccrary Interpreting Provider: Gary Mccrary Consult Discharge Plan - Plan Referrals: Eddie Mark MD [Primary Care Provider] - 11/20/16 11:00 am Joe aMn MD [Partnered Physician] - 12/09/16 9:45 am
--- NOTE | 2016-11-17 13:39 | Nuclear Medicine Stress Report ---
Regadenoson Nuclear Stress Name: Gary Lynch Date of Study: 11/17/2016 Date: 1935 Ht: 66.0 in Medical Record#: [id number] Age: 81 Wt: 118.0 lb Gender: Male Order #: [id number] Location: [facility] Room: 9 Supervising Provider: Kaia Valencia CNP Reading Physician: Artem Johnson MD, [facility] Ordering Physician: Jossue Lacy CNP Primary Care Physician: Eddie Mark MD Stress Technologist: Colin Fournier, [employer]UMENTS INSPECTOR, [facility] Egg Pasteurizer: Jd Malik Indications: Pre-operative Impression: Frequent PVCs and PACs noted during stress and early recovery. Non-specific ST-T wave changes were noted with regadenoson. The patient demonstrated a hypotensive blood pressure response to regadenoson. Blood pressure returned to baseline in recovery. Gated LVEF = 41%. Large sized, moderate-severe intensity, fixed perfusion defect involving the basal-apical inferior wall, basal-mid inferolateral wall, and apex. Findings are consistent with myocardial infarction involving the inferior wall, inferolateral wall, and apex. There is no evidence of reversible myocardial ischemia. History: Hypertension Diabetes Hypercholesteremia Prior PCI History of Coronary Artery Bypass Surgery Stress Test Summary: Stress Test Type: Pharmacologic Regadenoson 0.4mg/5ml given IV Baseline Information: Initial Heart Rate: 66 Blood Pressure: 118/56 Stress Information: Test Terminated Due to (primary): As per protocol Maximum Blood Pressure: 98/52 Maximum Heart Rate: 84 Percent Maximum Heart Rate Achieved: 60 Double Product: [id number] Symptoms: Shortness of breath, Lightheadness Nuclear Summary: SPECT myocardial perfusion imaging using Tc99m Sestamibi given intravenously was performed at rest and following cardiac stress testing. The resting images were obtained following initial dose of 11.5 mCi. Following stress an additional dose of 34.6 mCi was given at peak exercise or 30 seconds post regadenoson infusion. Findings: Stress Note * Resting ECG demonstrated sinus rhythm with 1st degree AV block, non-specific ST-T wave abnormality. * No baseline arrhythmias were noted. * Patient had no chest pain during stress. * Frequent PVCs and PACs noted during stress and early recovery. * Non-specific ST-T wave changes were noted with regadenoson. Hemodynamic responses * The patient demonstrated a hypotensive blood pressure response to regadenoson. Blood pressure returned to baseline in recovery. Study Quality * Study quality is average. Gated EF % * Gated LVEF = 41%. Left Ventricle * The left ventricle is not dilated. * Large sized, moderate-severe intensity, fixed perfusion defect involving the basal-apical inferior wall, basal-mid inferolateral wall, and apex. * Findings are consistent with myocardial infarction involving the inferior wall, inferolateral wall, and apex. * There is no evidence of reversible myocardial ischemia. TID * No evidence of transient ischemic dilatation. Updated by Artem Johnson MD, FACC on 11/17/2016 1:35:09 PM electronically signed on 11/17/2016 1:35:55 PM with status of Final
--- NOTE | 2016-11-17 13:49 | Nephrology Progress Note ---
Date of Encounter: 11/17/16 Time of Encounter: 13:39 - Assessment and Plan (1) Anemia Current Visit: Yes Status: Acute Monitor hemoglobin. May need LIZABETH. Transfuse as needed. Qualifiers: Qualified Code(s): D64.9 - Anemia, unspecified (2) Gangrene of toe Current Visit: Yes Status: Acute Per primary team and vascular sugery. (3) Hypertension Current Visit: Yes Status: Acute Blood pressure controlled. Will decrease amlodipine. Qualifiers: Hypertension type: essential hypertension Qualified Code(s): I10 - Essential (primary) hypertension (4) CKD (chronic kidney disease) Current Visit: Yes Status: Chronic Creatinine stable. Agree with mucomyst and hydration. Qualifiers: Chronic kidney disease stage: stage 4 (severe) Qualified Code(s): N18.4 - Chronic kidney disease, stage 4 (severe) Subjective Principal diagnosis: CKD Interval history: Patient seen. No new complaints. Family at the bedside. Objective - Vital Signs Vital signs: Vital Signs Temp Pulse Resp BP Pulse Ox 11/17/16 12:15 54 11/17/16 11:56 97.5 F L 63 117/83 98 11/17/16 10:24 79 115/44 97 11/17/16 07:28 58 11/17/16 07:25 98.4 F 54 14 108/58 99 11/17/16 03:48 98.5 F 56 12 105/50 98 11/17/16 00:47 97.8 F 64 14 121/62 98 11/16/16 21:06 98.2 F 58 17 125/61 100 11/16/16 20:59 58 11/16/16 19:00 59 103/54 11/16/16 18:00 79 119/61 11/16/16 17:30 65 119/76 11/16/16 17:00 52 123/101 11/16/16 16:45 83 122/73 11/16/16 16:30 59 119/64 11/16/16 16:15 58 122/60 11/16/16 15:57 97.4 F L 63 18 128/88 97 Intake and Output 11/16/16 11/17/16 11/17/16 23:59 07:59 15:59 Intake Total 1100 / 1100 1100 / 1100 100 / 100 Output Total 450 / 450 850 / 850 200 / 200 Balance 650 / 650 250 / 250 -100 / -100 Intake: IV Fluids 1100 / 1100 1100 / 1100 0.9 % Sodium Chloride 1, 1000 / 1000 1000 / 1000 000 ML @ 125 mls/hr IVC . Q8H FRANCESCA Rx#:[id number] Zosyn 3.375 GM In 100 / 100 100 / 100 Dextrose 5% (Minibag+) 100 ML 100 ML @ 25 mls/hr IVPB Q8HR FRANCESCA Rx#: [id number] Oral 100 / 100 Output: Urine 450 / 450 850 / 850 200 / 200 Other: Meal npo Percent of Meal Consumed 5% Stool Size Small Stool Consistency formed Stool Characteristics Normal for Patient Stool Color Brown # Bowel Movements 1 Weight 93.6 kg Blood Glucose* 163 115 112 Patient Weight 11/17/16 23:59 Weight 93.6 kg - General Appearance General appearance: Present: well-developed, well-nourished EENT: Present: ATNC Additional Comments: unlabored Additional Comments: bradycardic Neurologic: Present: alert and oriented x3 Psychiatric: Present: mood/affect appropriate - Lab 11/17/16 04:58 11/17/16 04:58 Most recent lab results Calcium 8.6 mg/dL (8.6-10.8) 11/17/16 04:58 Consult Discharge Plan - Plan Referrals: Rajendra Mai MD [Non-Partnered Physician] - Eddie Mark MD [Primary Care Provider] - 11/20/16 11:00 am Joe Man MD [Partnered Physician] - 12/09/16 9:45 am
[2016-11-17] MEDS ORDERED: Lidocaine -MPF 2% 2 ML VIAL ONE ×2 (14:00→14:42)
[2016-11-17] MEDS ORDERED: Lidocaine -MPF 4% 5 ML AMPUL ONE (14:00)
[2016-11-17] MEDS ORDERED: *HR* Succinylcholine 200 MG/10 ML VIAL IVP ONE (14:00)
[2016-11-17] MEDS ORDERED: *HR* Propofol 200 MG/20 ML VIAL IVP ONE (14:03)
[2016-11-17] MEDS ORDERED: *HR* Remifentanil 2 MG VIAL IVP ONE (14:09)
[2016-11-17] MEDS ORDERED: *HR* FentaNYL (PF) 100 MCG/2 ML VIAL ONE (14:09)
[2016-11-17] MEDS ORDERED: Heparin 1,000 UNITS/500 mL NS 500 ML ONE ×2 (14:31→14:42)
[2016-11-17] MEDS ORDERED: ceFAZolin 2,000 MG in D5% in Water (Mini-Bag+) 100 ML IVPB ONE ×2 (15:00→20:16)
[2016-11-17] MEDS ORDERED: *HR* Heparin 5,000 UNIT/ML VIAL ONE (15:22)
[2016-11-17] MEDS ORDERED: EPHEDrine 50 MG/ML VIAL ONE (15:48)
--- NOTE | 2016-11-17 16:12 | Cardiology Progress Note ---
Date of Encounter: 11/17/16 Time of Encounter: 12:00 Assessment and Plan (1) Pre-operative cardiovascular examination Current Visit: Yes Status: Acute Mr. 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 Dr. Man is planning for RLE bypass graft under general anesthesia today. He has a history of AL, 4 vessel CABG and tissue AVR in 2002. Follows with Dr. Mai in [place]. Records obtained from Dr. Mai's office. TTE 05/2016- EF 60% with no WMA, RV normal in size and function. Moderate calcification of mitral valve, no prolapse. There is mild to moderate mitral stenosis and mild mitral regurgitation. The bioprosthetic aortic valve appears to be well seated with no obvious lety-valvular leak. The valve is moderately calcified with increased transvalvular gradients (MG 19 mmHg, PG 32 mmHg, Calc VIVEK 1.2 cm2 previously normal). There is mild aortic regurgitation. LHC 04/2016 completed at [facility] showed 4/4 bypass grafts patent. EF 55%. Pharmacologic stress test 11/17/16- Positive for prior infarct with no evidence of ischemia. Discussed with Dr. Singh, acceptable risk for surgery today. (2) CAD (coronary artery disease) Current Visit: Yes Status: Acute H/o AL and 4 vessel CABG in 2002 per records. Continue asa, statin, and bb lety-operatively . Qualifiers: Coronary Disease-Associated Artery/Lesion type: [place] artery [place] vs. transplanted heart: [place] heart Associated angina: angina presence unspecified Qualified Code(s): I25.10 - Atherosclerotic heart disease of [place] coronary artery without angina pectoris Discussion w patient/family: The assessment and plan as outlined above was discussed with the patient and/or family members who expressed understanding and agreement. All questions were answered. Thank you for involving us in the care of your patient. Please call with any questions. Subjective Principal diagnosis: CKD Interval history: No complaints. Denies chest pain or SOB at rest. Objective Vital Signs, Last 4 Hours Temp Pulse BP Pulse Ox 11/17/16 12:15 54 11/17/16 11:56 97.5 F L 63 117/83 98 General: Conversant, No Apparent Distress HEENT: Atraumatic, Normocephaly, Mucus Membranes Moist Neck: No JVD, Normal carotid pulses Cardiac: Reg Rate and Rhythm, Normal S1 and S2, No Murmur Lungs: Normal Breath Sounds, No Wheeze, Rales, Rhonchi Neuro: Alert and responsive, No focal deficits noted Abdomen: Soft, Non-Tender Skin: No rashes noted on visualized skin Musculoskeletal: No Chest Wall Tenderness Extremities: No Clubbing, No Cyanosis, No Edema, Other (faint pulses BLE. Dressing right foot. ) Results 11/17/16 04:58 11/17/16 04:58 Lab Results 11/17/16 11/17/16 04:58 04:58 WBC 4.0 L Hgb 7.9 L Hct 24.7 L Plt Count 220 Sodium 141 Potassium 4.2 Chloride 109 Carbon Dioxide 24 BUN 38 H Creatinine 1.79 H Glucose 106 H Calcium 8.6 - Imaging and Cardiology Stress Test: report reviewed - EKG Interpretation EKG results cardiology: personally reviewed Consult Discharge Plan - Plan Referrals: Rajendra Mai MD [Non-Partnered Physician] - Eddie Mark MD [Primary Care Provider] - 11/20/16 11:00 am Joe Man MD [Partnered Physician] - 12/09/16 9:45 am
[2016-11-17] MEDS ORDERED: *HR* Phenylephrine 10 MG/ML VIAL ONE (16:49)
[2016-11-17] MEDS ORDERED: *HR* Labetalol 20 MG/4 ML SYRINGE IVP PRN ×2 (16:51→20:16)
[2016-11-17] MEDS ORDERED: Ondansetron 4 MG/2 ML VIAL IVP ONE ×2 (16:51→20:16)
[2016-11-17] MEDS ORDERED: *HR* FentaNYL (PF) 100 MCG/2 ML VIAL IVP PRN ×2 (16:51→20:16)
--- NOTE | 2016-11-17 18:24 | Operative Note ---
Date of procedure: 11/17/16 Pre-op diagnosis: Peripheral vascular disease with gangrene Post-op diagnosis: same Procedure: 1. Right femoral to tibial artery bypass with 6mm Distaflo minicuff PTFE graft. 2. Right common and deep femoral artery endarterectomy. 3. Right popliteal artery and tibioperoneal trunk artery endarterectomy Anesthesia: SANTOS Surgeon: Gary Chacon Co-Surgeon: Joe Man Estimated blood loss (cc): 100 Specimen: None Condition: stable Disposition: PACU Procedure in Detail: Indications: The patient is an 81 year old male with a history of diabetes, hypertension, chronic kidney disease stage 3, coronary artery disease and ischemic cardiomyopathy. He was found to have severe peripheral vascular disease with rest pain, a right foot abscess and right foot gangrene. Procedure: The patient was identified in the preoperative area. The risks, benefits, and alternatives of the procedure were discussed. All questions were answered. The patient was taken to the operating room and placed in supine position on the operating room table. After the induction of general endotracheal anesthesia, he was cleaned and draped in normal sterile fashion. A two surgeon approach was utilized for this procedure in order to minimize anesthetic time and the risks for complications due to the patients comorbid conditions. In addition, a two surgeon approach was used for intraoperative decision making. An oblique incision was made over the left groin sharply. Hemostasis was obtained with electrocautery. Through a process of blunt, sharp, and electrocautery dissection, the right femoral vessels were dissected circumferentially and surrounded with vessel loops. An incision was made on the right medial calf sharply. Hemostasis was obtained with electrocautery. Through a process of blunt, sharp, and electrocautery dissection, the right below-knee popliteal artery was dissected proximally and distally and surrounded with vessel loops. The vessel appeared firm and therefore the disection proceeded distally. The anterior tibial vein was dissected, ligated with 2-0 silk ligature and divided. The anterior tibial artery and tibioperoneal trunk were dissected circumferentially and surrounded with vessel loops. A graft was tunneled between the popliteal and femoral incisions. The patient received 5000 units of heparin intravenously. The popliteal and tibial vessels were occluded and a longitudinal arteriotomy was made in the popliteal artery. The arteriotomy was extended onto the tibioperoneal trunk. Significant partially occlusive plaque was identified. Due to the fact that the plaque would likely obstruct the flow distal to the anastamosis, the decision was made to perform an endarterectomy. Using a dental freer an endarterectomy was performed on the popliteal artery and tibioperoneal trunk. Proximal and distal endpoints were inspected and The distal end of the graft was then sutured in place with a running 6-0 Prolene , but not tied. Heparinized saline was infused into the lumen. Tension was applied to the femoral vessel loops. An arteriotomy was made in the common femoral artery. An occlusive plaque was noted to be present in the distal common femoral and proximal deep femoral artery. An endarterectomy was performed on the distal common femoral and proximal deep femoral artery. Endpoints were inspected and no elevated flap was noted. The proximal end of the graft was then cut to fit the arteriotomy defect. The graft was anastamosed with a running 6-0 Prolene. The vessels were flushed through the graft and heparin was infused into the lumen. The graft was clamped with an atraumatic clamp. Thrombin and gelfoam were used at the proximal anastamosis. The distal arterial anastomosis suture line was completed. Prior to completing the closure, the popliteal vessels were flushed and reoccluded. Heparinized saline was infused into the lumen. The anastamosis was tied and then flow was restored. Polyphasic signals were noted distal to the distal anastomosis as well as at the posterior tibial artery. Wounds were irrigated with antibiotic-containing saline. Fibrilar used to aid in hemostasis. Meticulous hemostasis was obtained throughout the wound with electrocautery. Wounds were reapproximated with layers of 2-0 and 3-0 Vicryl. Skin was reapproximated with 4-0 Vicryl. Sterile dressing was applied. The patient was extubated and taken to recovery room in stable condition.
--- NOTE | 2016-11-17 18:36 | Operative Note ---
Date of procedure: 11/17/16 Pre-op diagnosis: limb threatening ischemia of right lower extremity Post-op diagnosis: same Procedure: right femoral-TibioPeroneal Trunk Bypass with 6 mm PTFE Distaflo right common femoral endarterectomy right BK Popliteal and TibioPeroneal Trunk and Anterior Tibial endarterectomy Complications: none Anesthesia: GETA Surgeon: Joe Man Co-Surgeon: Gary Chacon Estimated blood loss (cc): 100 Specimen: none Condition: stable Disposition: PACU Procedure in Detail: History Gary Lynch is an 81-year-old -Greek male who was seen in urgent consultation yesterday and an angiogram was performed for severe ischemia of the right foot. He does undergo an a fifth metatarsal head resection for an abscess. The patient then subsequent to that developed ischemia of his toes and gangrene of the right fifth toe. The antrum yesterday demonstrated a chronic total occlusion of the superficial femoral artery and diffuse popliteal disease. Attempts at passing a wire through the occlusion was unsuccessful thought secondary to dense calcification and chronic obstruction. Her for the patient was recommended to come to the operating room today. He had a stress test performed earlier this morning because of his previous history of iliac disease. No reversible ischemia was found and the patient now comes the operating room in an attempt to salvage the right lower extremity. Procedure After informed consent was obtained the patient was taken the operating room. An arterial line was placed. General endotracheal anesthesia was established. The right lower extremity was sterilely prepped and draped. A timeout protocol was observed. A 2 team approach was utilized for this procedure. This was necessary due to the multiple cold morbid conditions the patient had including severe cardiac disease and stage IV chronic kidney disease. The 2 team approach would allow for intraoperative complex decision making and to minimize complications associated with prolonged general anesthesia blood loss. The common femoral artery was dissected as was the [id number] popliteal and tibial peroneal trunk area. The patient demonstrated significant calcific changes as expected. Controls obtained with a vessel loop. The area of the popliteal and tibial peroneal trunk and anterior tibial artery was particularly densely calcified. A anatomic tunnel was then created in the subsartorial space. A 6 mm PTFE Distaflo graft was selected. This was passed through the tunnel. 5000 units heparin were then administered intravenously. The distal below the knee popliteal artery and proximal tibial peroneal trunk were then opened. The orifice of the anterior tibial artery was also exposed with this procedure. An a formal endarterectomy was then performed of the distal below the knee popliteal artery. The very thick and dense palate of calcified material was identified. The orifice and proximal aspect of the anterior tibial artery was also endarterectomized and retrograde bleeding was established. Finally the proximal tibial peroneal trunk was endarterectomized as well. Again this was all dense and thick plaque. Retrograde bleeding was identified from the tibial peroneal trunk as well. With this accomplished the distal anastomosis was initiated using the fluted end of the Distaflo graft. 6-0 Prolene suture was used to create this anastomosis. After the heel was anchored into position the graft was checked for length and then the graft was cut to accommodate the proximal anastomosis. The common femoral artery was then opened in a longitudinal fashion. Again thick dense plaque was found here that was obstructing the lumen and a formal endarterectomy was necessary here. A Hudson elevator was used as was used and the popliteal and tibial vessels in order to endarterectomize the vessel and the leaf lift the calcified plaque up and out of the vessel. After this was done the proximal anastomosis could be performed end-to-side using 6-0 Prolene. Meanwhile the distal anastomosis was being completed simultaneously. This encompassed the distal below the knee popliteal artery, orifice of the anterior tibial artery and the proximal tibial peroneal trunk. After appropriate backbleeding and flushing the graft was opened. Excellent pulsatile flow through the graft was demonstrated. A palpable pulse in the calcific tibial peroneal trunk distally could be documented. Doppler signals were identified over the posterior tibial and her Reilly pedis artery at the ankle level. The 2 incisions were then copiously irrigated with antibiotic containing solution. Hemostasis was achieved with topical agents. The incisions were then closed using absorbable suture. There were no intraoperative complications. The patient tolerated the procedure well. He was extubated at the end of the operation and taken to the recovery room in stable condition. The estimated blood loss was 100 mL.
--- NOTE | 2016-11-17 19:32 | Anesthesia Evaluation Post Op ---
Date of Encounter: 11/17/16 Time of Encounter: 19:31 - Vital Signs Vital Signs: Vital Signs/O2 Sat, Most Current Temp Pulse Resp BP Pulse Ox 98.1 F 70 18 102/76 98 11/17/16 19:13 11/17/16 19:13 11/17/16 19:13 11/17/16 19:13 11/17/16 19:13 - Lungs Lungs: Clear Ascult./Percussion - Airway Airway: Non-obstructed - Cardiovascular Regular Rate - Mental Status Mental Status: Alert & Oriented, Answers Appropriately - Pain Pain Scale: 0 Pain Scale used: Numeric (1 - 10) - Nausea Vomiting Nausea Vomiting: Not Present - Hydration Hydration: NPO, Deleon catheter - Discharge PostOp Status: Transfer Patient to floor
[2016-11-17] MEDS ORDERED: Naloxone 0.4 MG/ML INJ IVP PRN ×2 (20:16)
[2016-11-17] MEDS ORDERED: Ondansetron 4 MG/2 ML VIAL IVP PRN (20:16)
[2016-11-17] MEDS ORDERED: Dextrose Gel 15 GM PO PRN ×2 (20:16)
[2016-11-17] MEDS ORDERED: D5% in Water 1,000 ML IVC PRN (20:16)
[2016-11-17] MEDS ORDERED: *HR* Dextrose 50 % in Water (Syg) 50 ML SYRINGE IVP PRN (20:16)
[2016-11-18] MEDS: ceFAZolin 2,000 MG in D5% in Water 100 ML IVPB SCH ×3 (00:04→18:21)
[2016-11-18] MEDS: *HR* Acetaminophen w/Cod 300-30 mg 1 TAB TABLET PO PRN ×2 (00:04→11:25)
[2016-11-18] MEDS: Piperacillin/Tazobactam 3.375 GM in D5% in Water (Mini-Bag+) 100 ML IVPB SCH ×4 (01:09→23:40)
[2016-11-18] MEDS: Insulin LISPRO 300 UNITS/3 ML VIAL SQ SCH ×5 (03:06→23:56)
[2016-11-18 07:24] LABS: Basophils % 0.2 %; Eosinophils # 0.1 K/mcL (0.0-0.6); Eosinophils % 1.2 %; Hematocrit 25.1 % (37.5-50.1); Hemoglobin 7.9 g/dL (12.9-16.9); Immature Granulocytes % 0.8 % (0-4); Immature Platelets 1.2 % (1.1-6.1); Lymphocytes # 0.6 K/mcL (0.6-4.6); Lymphocytes % 10.5 %; Mean Corpuscular HGB Conc 31.5 g/dL (31.6-35.5); Mean Corpuscular Hemoglobin 26.2 pg (28.0-33.3); Mean Corpuscular Volume 83.1 fL (83.0-100.0); Mean Platelet Volume 8.9 fL (9.4-12.4); Monocytes # 0.4 K/mcL (0.0-1.3); Monocytes % 6.5 %; Neutrophils # 4.8 K/mcL (1.6-8.9); Platelet Count 240 K/mcL (140-400); Red Blood Count 3.02 M/mcL (4.19-5.50); Red Cell Distribution Width 13.9 % (11.5-14.5); Segmented Neutrophils % 80.8 %
[2016-11-18] MEDS: Aspirin Enteric Coated 81 MG Tablet PO SCH (07:54)
[2016-11-18 07:56] LABS: Calcium 8.4 mg/dL (8.6-10.8); Potassium 4.2 mEq/L (3.5-4.5)
[2016-11-18] MEDS: 0.9 % Sodium Chloride 1,000 ML IVC SCH ×3 (08:14→23:33)
--- NOTE | 2016-11-18 08:22 | Vascular/[facility] Progress Note ---
Date of Encounter: 11/18/16 Time of Encounter: 08:19 - Assessment and plan (1) PAD (peripheral artery disease) Current Visit: Yes Status: Chronic Postoperative day #1 following right lower extremity revascularization. Patent bypass graft. Breast tissue and of improved blood flow to right foot. (2) Gangrene of toe Current Visit: Yes Status: Acute Status post right fifth metatarsal surgery with gangrenous changes of right fifth toe and discolored adjacent toes. (3) CKD (chronic kidney disease) Current Visit: Yes Status: Chronic Renal function continues to improve with perioperative hydration. Qualifiers: Chronic kidney disease stage: stage 4 (severe) Qualified Code(s): N18.4 - Chronic kidney disease, stage 4 (severe) - Subjective Interval history: Patient states that the right foot is feeling warmer. He has no specific pain except at the surgical sites. The patient was agitated last night and required soft restraints. Vital Signs, Last 4 Hours Temp Pulse Resp BP Pulse Ox 11/18/16 07:04 99.1 F 84 16 120/59 98 11/18/16 06:21 64 18 101/57 97 11/18/16 04:39 89 11/18/16 04:30 98.9 F 86 16 112/64 98 - Physical Examination General: Present: Conversant, No Apparent Distress HEENT: Present: Atraumatic Neuro: Present: Alert and responsive, No focal deficits noted Vascular: Present: Normal capillary refill, Surgical incisions (Patient has dry surgical dressings on his groin and right calf incision. The right foot incision is covered with a Kerlix roll.), Other (The patient has Doppler signals at the dorsalis pedis posterior tibial artery and at the first webspace on the right foot. The right foot is warm to touch.) - VTE Documentation of Mechanical Device: Intermittent pneumatic compression device Results 11/18/16 07:16 11/18/16 07:16 Lab Results, Last 24 hours 11/18/16 11/18/16 07:16 07:16 WBC 5.9 Hgb 7.9 L Hct 25.1 L Plt Count 240 Sodium 138 Potassium 4.2 Chloride 108 Carbon Dioxide 24 BUN 24 D Creatinine 1.63 H Glucose 122 H Calcium 8.4 L Consult Discharge Plan - Plan Referrals: Rajenrda Mai MD [Non-Partnered Physician] - Eddie Mark MD [Primary Care Provider] - 11/20/16 11:00 am Joe Man MD [Partnered Physician] - 12/09/16 9:45 am
[2016-11-18] MEDS ORDERED: amLODIPine 5 MG TABLET PO SCH ×2 (09:00)
--- NOTE | 2016-11-18 10:52 | Internal Med Progress Note ---
Date of Encounter: 11/18/16 Time of Encounter: 10:20 - Subjective Interval history: Pt seen and examined with present at bedside. Resting in bed, reports of pain in right calf at the site of surgery. s/o RLE revascularization. Noted to have atrial fibrillation, rate currently controlled with BB. Not a good candidate for [facility] anticoagulation given risk of falls. Will continue ASA for CVA ppx. As per , patient has history of afib and used to take coumadin at one point, however has been discontinued at this time. Medicine consulted for management with co-morbidities - Assessment and Plan (1) Peripheral Artery disease Current Visit: Yes Status: Acute Assessment and plan: Plan as per primary team (podiatry) and vascular surgery POD #1 RLE revascularization H&H low but acceptable pain control (2) Type 2 diabetes mellitus Current Visit: Yes Status: Acute Assessment and plan: Hold oral antihyperglycemic agents BG within acceptable range continue ss insulin algorithm monitor FS and BG Qualifiers: Diabetes mellitus complication status: with unspecified complications Diabetes mellitus [facility] insulin use: without [facility] use Qualified Code( s): E11.8 - Type 2 diabetes mellitus with unspecified complications (3) Hypertension Current Visit: Yes Status: Acute Assessment and plan: BP within acceptable range continue to closely monitor added Parameters to Amlodipine and coreg dosing continue to hold Lasix and Lisinopril Qualifiers: Hypertension type: essential hypertension Qualified Code(s): I10 - Essential (primary) hypertension (4) CAD (coronary artery disease) Current Visit: Yes Status: Acute Assessment and plan: Patient with CAD s/p 4-vessel CABG and stent placements. Patient denies any chest pain. EKG shows sinus bradycardia with 1st degree AV block, no ST elevations or depressions. Will continue beta naomie, aspirin, and statin. Cardiology on board Qualifiers: Coronary Disease-Associated Artery/Lesion type: [place] artery [place] vs. transplanted heart: [place] heart Associated angina: angina presence unspecified Qualified Code(s): I25.10 - Atherosclerotic heart disease of [place] coronary artery without angina pectoris (5) CKD (chronic kidney disease) Current Visit: Yes Status: Chronic Assessment and plan: Renal function improving continue to hold Lasix and Lisinopril at this time Nephrology on board Qualifiers: Chronic kidney disease stage: stage 4 (severe) Qualified Code(s): N18.4 - Chronic kidney disease, stage 4 (severe) (6) DVT prophylaxis Current Visit: Yes Status: Acute Assessment and plan: EPCD Heparin SQ once cleared by surgery (7) Atrial Fibrillation Current Visit: Yes Status: Chronic Assessment and plan: Rate controlled with BB ASA for CVA ppx not a candidate for long term care administrator anticoagulation given risk of falls - Constitutional Vitals: Temp Pulse Resp BP Pulse Ox 99.1 F 83 16 120/59 98 11/18/16 07:04 11/18/16 07:40 11/18/16 07:04 11/18/16 07:04 11/18/16 07:04 General appearance: Present: A&O X 3, pleasant, no acute distress - Head Head exam: Present: atraumatic, normocephalic - Eye Eye exam: Present: normal appearance, conjuntiva pink, sclera anicteric - Respiratory Respiratory exam: Present: CTAB. Absent: accessory muscle use, rales, rhonchi, wheezes - Cardiovascular Cardiovascular exam: Present: irregular rhythm, +S1, +S2 - GI/Abdominal GI/Abdominal exam: Present: normal bowel sounds, soft. Absent: distended, tenderness - Extremities Exam Extremities exam: Present: pedal edema (RLE calf tenderness at the site of surgery), warm, radial pulses palpable and symetrical - Neurological Exam Neurological exam: Present: alert, oriented X3 - Psychiatric Psychiatric exam: Present: normal affect, normal mood Internal Medicine: Result - Labs CBC & Chem 7: 11/18/16 07:16 11/18/16 07:16 Labs: Short CBC 11/18/16 Range/Units 07:16 WBC 5.9 (4.3-11.1) K/mcL Hgb 7.9 L (12.9-16.9) g/dL Hct 25.1 L (37.5-50.1) % Plt Count 240 (140-400) K/mcL Neutrophils # 4.8 (1.6-8.9) K/mcL BMP 11/18/16 07:16 Sodium 138 Potassium 4.2 Chloride 108 Carbon Dioxide 24 BUN 24 D Creatinine 1.63 H Glucose 122 H Calcium 8.4 L - ABG Interpretation ABG results: PT/INR, D-dimer PT 13.1 Seconds (9.4-12.1) H 11/16/16 09:18 - VTE Documentation of Mechanical Device: Intermittent pneumatic compression device Consult Discharge Plan - Plan Referrals: Rajendra Mai MD [Non-Partnered Physician] - Eddie Mark MD [Primary Care Provider] - 11/20/16 11:00 am Joe Man MD [Partnered Physician] - 12/09/16 9:45 am
[2016-11-18] MEDS: *HR* Heparin 5,000 UNIT/ML VIAL SQ SCH (16:24)
[2016-11-19 04:29] LABS: Basophils % 0.2 %; Eosinophils # 0.3 K/mcL (0.0-0.6); Eosinophils % 4.5 %; Hemoglobin 8.2 g/dL (12.9-16.9); Immature Granulocytes % 1.3 % (0-4); Lymphocytes # 0.6 K/mcL (0.6-4.6); Lymphocytes % 9.2 %; Mean Corpuscular HGB Conc 31.5 g/dL (31.6-35.5); Mean Corpuscular Hemoglobin 26.1 pg (28.0-33.3); Mean Corpuscular Volume 82.8 fL (83.0-100.0); Mean Platelet Volume 9.9 fL (9.4-12.4); Monocytes # 0.4 K/mcL (0.0-1.3); Monocytes % 5.9 %; Platelet Count 233 K/mcL (140-400); Red Blood Count 3.14 M/mcL (4.19-5.50); Red Cell Distribution Width 13.9 % (11.5-14.5); Segmented Neutrophils % 78.9 %
[2016-11-19 04:52] LABS: Calcium 8.4 mg/dL (8.6-10.8); Magnesium 1.5 mg/dL (1.6-2.6); Phosphorous 2.5 mg/dL (2.3-4.7); Potassium 3.9 mEq/L (3.5-4.5)
[2016-11-19] MEDS: *HR* Heparin 5,000 UNIT/ML VIAL SQ SCH ×2 (06:26→17:07)
[2016-11-19] MEDS: Insulin LISPRO 300 UNITS/3 ML VIAL SQ SCH ×3 (06:26→15:57)
[2016-11-19] MEDS ORDERED: Bupivacaine/Clonidine Syringe 1 EACH SYRINGE ONE (06:39)
[2016-11-19] MEDS ORDERED: *HR* Midazolam HCl 2 MG/2 ML VIAL ONE (07:48)
[2016-11-19] MEDS ORDERED: Propofol 500 MG/50 ML INFUS..BTL ONE ×2 (07:48→08:58)
[2016-11-19] MEDS ORDERED: Magnesium Sulfate 1 GM in D5% in Water 100 ML IVPB ONE (07:54)
--- NOTE | 2016-11-19 07:55 | History & Physical Report ---
Date of Encounter: 11/19/16 Time of Encounter: 07:53 24 Hour HP Update - Instructions Instructions: If the History and Physical is less than 30 days old and was completed prior to A.M. admission and or procedure and has NOT been updated on calendar day of procedure please complete this update prior to performing procedure. - Update Patient reports changes in Medical Condition: No Changes in examination, assessment, or condition: No Changes in Medication: No Preop tests/diagnostics Reviewed: Yes Pre-Op MRSA Screen: Negative Surgery Remains Indicated: Yes Consent for Planned Operative Procedure(s) Verified: Yes Review of Patient reveals the following changes:: Recent revascularization of right lower extremity successful. Gangrene of fifth toe and dehiscence of wound in need of debridement. We discussed the risks versus the benefits as well as alternatives to surgery yesterday with his in attendance. Patient states his pain is almost completely gone of his right leg and foot.
--- NOTE | 2016-11-19 08:06 | Anesthesia Evaluation PreOp ---
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 History: Denies Any Significant HX Other Medical History: Renal, Diabetes Type II Anesthesia History: No Prior Anesthetic Complications, Past Anesthesia Alcohol Use: none Drug use: none Medications and Allergies Amoxicillin [Amoxil] 500 mg PO BID 11/05/16 [History] Aspirin [Lo-Dose Aspirin EC] 81 mg PO DAILY 11/05/16 [History] Carvedilol [Coreg] 25 mg PO BID 11/05/16 [History] Cholecalciferol (D-3) [Vitamin D] 1,000 mg PO DAILY 11/05/16 [History] Furosemide [Lasix] 80 mg PO BID 11/05/16 [History] HYDROcodone/Acet 5/325 mg [[place] 5-325 mg] 1 tab PO Q6H PRN #28 tab 11/05/16 [Rx ] Lisinopril [Zestril] 20 mg PO DAILY 11/05/16 [History] Multivit-Min/FA/Lycopen/Lutein [Centrum Silver Tablet] 1 tab PO DAILY 11/05/16 [ History] Tamsulosin [Flomax] 0.8 mg PO DAILY 11/05/16 [History] amLODIPine [Norvasc] 5 mg PO DAILY 11/05/16 [History] metFORMIN [Glucophage] 500 mg PO BIDWM 11/05/16 [History] Ferrous Sulfate [Iron] 325 mg PO TID 11/16/16 [History] Simvastatin [Zocor] 20 mg PO HS 11/16/16 [History] Allergies Hydromorphone [From Dilaudid] Allergy (Verified 11/17/16 09:41) Hallucinating morphine Allergy (Verified 11/16/16 13:21) Hallucinating Has taken hydrocodone with no hallucinations Oxycodone [From Percocet] Allergy (Verified 11/17/16 09:41) Hallucinating Penicillins [PCN] Allergy (Verified 11/05/16 08:42) Hives fentanyl Adverse Reaction (Verified 11/17/16 23:46) Hallucinating haloperidol [From Haldol] Adverse Reaction (Verified 11/17/16 23:46) Hallucinating ketorolac [From Toradol] Adverse Reaction (Verified 11/17/16 23:49) Hallucinating tramadol Adverse Reaction (Verified 11/17/16 23:49) Hallucinating - Meds/Allergy Pre-op Review Medications Reviewed: Yes Allergies Reviewed: Yes Beta Blockers on Current Med List: Yes If Beta Blockers taken, Date/Time (Last Dose taken): 11/18/2016 at 1624 Anesthesia Results - Labs 11/19/16 03:44 11/19/16 03:44 - Imaging EKG: report reviewed (11/16/2016 SB, 1st degree AV block) Additional studies: 11/17/2016 Stress LVEF 41% frequent PVC's and PAC's noted during early recovery NSST wave changes were noted with ragadenoson large sized, moderate-severe intensity, fixed perfusion defect involving the basal-apical inferior wall, basal-mid inferolateral wall, and apex findings c/w AL involving wall, inferolateral wall and apex there is no evidence of reversible ischemia 06/20/2012 [facility] Impressions: There is moderate three vessel coronary artery disease. S/P CABG 4 of 4 patent bypass grafts. Moderate aortic valve insufficiency. 06/20/2012 Echo Impressions: LV * Normal left ventricular size and systolic function. * There is evidence of mild diastolic dysfunction of the left ventricle. * LVEF 55-60% * There is no evidence of a left ventricular thrombus. RV * Normal right ventricular size and function. Valves * There is evidence of mild aortic stenosis. VIVEK 1.5 cm2 , Peak systolic gradient : 33 mm Hg , mean sytolic gradient :16 mm Hg.(Bio prosthetic AV). * There is evidence of mild aortic regurgitation. * There is trivial tricupsid regurgitation RVSP * There is no pulmonary hypertension. Anesthesia Exam Vital Signs/O2 Sat/Glucose, Most Recent Temp Pulse Resp BP Pulse Ox 100.1 F H 80 18 112/59 98 11/19/16 03:40 11/19/16 07:00 11/19/16 03:40 11/19/16 03:40 11/19/16 03:40 Blood Glucose* 135 Height: 6'2''/1.88 m Weight: 218 lbs/99.138 kg NPO (# of Hours): 8 Pain Scale: 4 Pain Scale Used: Numeric (1 - 10) - HEENT Pupil (Motor): EOMI Mallampati: II Teeth: Normal Oral Opening: Greater than 3 - REFUELING RAMPMAN LOC: Oriented REFUELING RAMPMAN Motor: Normal RUE, Normal LUE, Normal RLE, Normal LLE, Normal Face REFUELING RAMPMAN Sensory: Normal: RUE, LUE, RLE, LLE, Face - Cardiac Rhythm: Regular Murmur: None - Pulmonary Breath Sounds: bilateral Clear Respiratory Effort: Symmetrical Anesthesia Assess/Plan ASA Score: 3 Modified Jefferson Scale for Level of Consciousness: Cooperative, oriented, and tranquil Anesthetic Plan: MAC Monitoring Plan: Standard Monitors Recovery Plan: PACU
--- NOTE | 2016-11-19 08:45 | Nephrology Consult Note ---
Date of Encounter: 11/16/16 Time of Encounter: 17:27 Assessment and Plan (1) Anemia Current Visit: Yes Status: Acute Monitor. Transfuse as needed. Qualifiers: Qualified Code(s): D64.9 - Anemia, unspecified (2) Gangrene of toe Current Visit: Yes Status: Acute Per vascular surgery. (3) Hypertension Current Visit: Yes Status: Acute Titrate antihypertensive medication as needed. Avoid hypotension. Qualifiers: Hypertension type: essential hypertension Qualified Code(s): I10 - Essential (primary) hypertension (4) CKD (chronic kidney disease) Current Visit: Yes Status: Chronic Stage 4 CKD that is stable. Recommend hydration and mucomyst to minimize chance of VERENICE as stated in the event note on 11/16/2016. Adjust medications for renal function. Avoid nephrotoxins. Qualifiers: Chronic kidney disease stage: stage 4 (severe) Qualified Code(s): N18.4 - Chronic kidney disease, stage 4 (severe) History of Present Illness - Reason for Consult Consult date: 11/16/16 Chronic Kidney Disease - Chief Complaint CKD - History of Present Illness Mr. Lynch is an 81 yo man with a history of CKD followed by Dr. Mckeon who presents for management of dry gangrene of his right 5th digit. Consult was placed for ongoing management of his CKD. The patient denies any change in his medication recently and denies changes in his health other than the gangrenous toe. Past Med Surg Social Fam HX - Past Medical History Medical history: arthritis, cardiomyopathy, CHF, coronary artery disease, diabetes, hypertension, myocardial infarction, renal disease, other Psychiatric history: no psych history - Past Surgical History Surgical History: arthroscopy, coronary bypass (CABG), hip replacement, knee replacement, orthopedic, other, other - Social History Smoking Status: Former smoker Smokeless Tobacco Status: No Alcohol use: none Drug use: none - Family History Paternal Family Member Ethnicity: Non- Living Status: Hx Family Cardiac Disorders: Yes Hx Family Respiratory Disorders: Yes Medications and Allergies Amoxicillin [Amoxil] 500 mg PO BID 11/05/16 [History] Aspirin [Lo-Dose Aspirin EC] 81 mg PO DAILY 11/05/16 [History] Carvedilol [Coreg] 25 mg PO BID 11/05/16 [History] Cholecalciferol (D-3) [Vitamin D] 1,000 mg PO DAILY 11/05/16 [History] Furosemide [Lasix] 80 mg PO BID 11/05/16 [History] HYDROcodone/Acet 5/325 mg [[place] 5-325 mg] 1 tab PO Q6H PRN #28 tab 11/05/16 [Rx ] Lisinopril [Zestril] 20 mg PO DAILY 11/05/16 [History] Multivit-Min/FA/Lycopen/Lutein [Centrum Silver Tablet] 1 tab PO DAILY 11/05/16 [ History] Tamsulosin [Flomax] 0.8 mg PO DAILY 11/05/16 [History] amLODIPine [Norvasc] 5 mg PO DAILY 11/05/16 [History] metFORMIN [Glucophage] 500 mg PO BIDWM 11/05/16 [History] Ferrous Sulfate [Iron] 325 mg PO TID 11/16/16 [History] Simvastatin [Zocor] 20 mg PO HS 11/16/16 [History] Allergies Hydromorphone [From Dilaudid] Allergy (Verified 11/17/16 09:41) Hallucinating morphine Allergy (Verified 11/16/16 13:21) Hallucinating Has taken hydrocodone with no hallucinations Oxycodone [From Percocet] Allergy (Verified 11/17/16 09:41) Hallucinating Penicillins [PCN] Allergy (Verified 11/05/16 08:42) Hives fentanyl Adverse Reaction (Verified 11/17/16 23:46) Hallucinating haloperidol [From Haldol] Adverse Reaction (Verified 11/17/16 23:46) Hallucinating ketorolac [From Toradol] Adverse Reaction (Verified 11/17/16 23:49) Hallucinating tramadol Adverse Reaction (Verified 11/17/16 23:49) Hallucinating Review of Systems All Systems: reviewed and no additional remarkable complaints except as stated ( as documented in the hpi) Exam - Vital Signs Vital signs: Initial Vital Signs Temp Pulse Resp BP Pulse Ox 97.5 F L 67 18 114/64 100 11/16/16 09:05 11/16/16 09:05 11/16/16 09:05 11/16/16 09:05 11/16/16 09:05 Vital Signs - Last 8 Hours Temp Pulse Resp BP Pulse Ox 11/19/16 07:00 80 11/19/16 03:40 100.1 F H 89 18 112/59 98 11/19/16 03:30 75 Intake and Output 11/18/16 11/19/16 11/19/16 23:59 07:59 15:59 Intake Total 440 / 440 1100 / 1100 Output Total 350 / 350 Balance 90 / 90 1100 / 1100 Intake: IV Fluids 200 / 200 1100 / 1100 0.9 % Sodium Chloride 1, 1000 / 1000 000 ML @ 125 mls/hr IVC . Q8H FRANCESCA Rx#:[id number] Zosyn 3.375 GM In 100 / 100 100 / 100 Dextrose 5% (Minibag+) 100 ML 100 ML @ 25 mls/hr IVPB Q8HR FRANCESCA Rx#: [id number] Ancef 2,000 MG In 100 / 100 Dextrose 5% 100 ML @ 200 mls/hr IVPB Q8HR FRANCESCA Rx#: [id number] Oral 240 / 240 Output: Urine 350 / 350 Other: Meal Dinner Percent of Meal Consumed 100% Weight 99.138 kg Blood Glucose* 125 135 Patient Weight 11/19/16 23:59 Weight 99.138 kg - General Appearance General appearance: well-developed, well-nourished EENT: ATNC Neck: supple Respiratory: clear Cardiology: no edema, regular rate Gastrointestinal: no tenderness Neurologic: alert and oriented x3 Psychiatric: mood/affect appropriate Results - Lab Results 11/19/16 03:44 11/19/16 03:44 Most recent lab results Calcium 8.4 mg/dL (8.6-10.8) L 11/19/16 03:44 Phosphorus 2.5 mg/dL (2.3-4.7) 11/19/16 03:44 Magnesium 1.5 mg/dL (1.6-2.6) L 11/19/16 03:44 Consult Discharge Plan - Plan Referrals: Rajendra Mai MD [Non-Partnered Physician] - Eddie Mark MD [Primary Care Provider] - 11/24/16 11:30 am Joe Man MD [Partnered Physician] - 12/09/16 9:45 am
[2016-11-19] MEDS ORDERED: *HR* Phenylephrine 10 MG/ML VIAL ONE (08:48)
[2016-11-19] MEDS: 0.9 % Sodium Chloride 1,000 ML IVC SCH ×2 (10:22→14:15)
[2016-11-19] MEDS: Piperacillin/Tazobactam 3.375 GM in D5% in Water (Mini-Bag+) 100 ML IVPB SCH ×3 (10:27→23:34)
--- NOTE | 2016-11-19 10:53 | Nephrology Progress Note ---
Date of Encounter: 11/19/16 Time of Encounter: 10:49 - Assessment and Plan (1) Anemia Current Visit: Yes Status: Acute Monitor hemoglobin. May need LIZABETH. Transfuse as needed. Qualifiers: Qualified Code(s): D64.9 - Anemia, unspecified (2) Gangrene of toe Current Visit: Yes Status: Acute Per primary team and vascular sugery. s/p surgery 11/19/2016. (3) Hypertension Current Visit: Yes Status: Acute Blood pressure controlled. Amlodipine decreased. Will hold and monitor for hypertensive response. Qualifiers: Hypertension type: essential hypertension Qualified Code(s): I10 - Essential (primary) hypertension (4) CKD (chronic kidney disease) Current Visit: Yes Status: Chronic Creatinine stable. Agree with mucomyst and hydration. Avoid nephrotoxins. Adjust medications as needed. Qualifiers: Chronic kidney disease stage: stage 4 (severe) Qualified Code(s): N18.4 - Chronic kidney disease, stage 4 (severe) Subjective Principal diagnosis: CKD Interval history: Patient seen. No new complaints. at the bedside. 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 Objective - Vital Signs Vital signs: Vital Signs Temp Pulse Resp BP Pulse Ox 11/19/16 10:30 81 18 127/61 100 11/19/16 10:15 70 18 127/101 99 11/19/16 10:13 69 18 127/95 100 11/19/16 07:00 80 11/19/16 03:40 100.1 F H 89 18 112/59 98 11/19/16 03:30 75 11/18/16 23:45 98.8 F 76 18 118/67 94 11/18/16 20:30 68 11/18/16 19:20 98.2 F 70 16 131/55 99 11/18/16 16:35 68 11/18/16 15:56 98.0 F 68 17 128/69 98 11/18/16 12:00 69 16 11/18/16 11:50 97.7 F 78 16 104/81 98 Intake and Output 11/18/16 11/19/16 11/19/16 23:59 07:59 15:59 Intake Total 440 / 440 1100 / 1100 Output Total 350 / 350 10 / 10 Balance 90 / 90 1100 / 1100 -10 / -10 Intake: IV Fluids 200 / 200 1100 / 1100 0.9 % Sodium Chloride 1, 1000 / 1000 000 ML @ 125 mls/hr IVC . Q8H FRANCESCA Rx#:[id number] Zosyn 3.375 GM In 100 / 100 100 / 100 Dextrose 5% (Minibag+) 100 ML 100 ML @ 25 mls/hr IVPB Q8HR FRANCESCA Rx#: [id number] Ancef 2,000 MG In 100 / 100 Dextrose 5% 100 ML @ 200 mls/hr IVPB Q8HR FRANCESCA Rx#: [id number] Oral 240 / 240 Output: Urine 350 / 350 Estimated Blood Loss Other: Meal Dinner Percent of Meal Consumed 100% Weight 99.138 kg Blood Glucose* 125 135 125 Patient Weight 11/19/16 23:59 Weight 99.138 kg - General Appearance General appearance: Present: well-developed, well-nourished EENT: Present: ATNC Neck: Present: supple Additional Comments: respirations are unlabored. Cardiology: Present: regular rate Neurologic: Present: alert and oriented x3 Psychiatric: Present: mood/affect appropriate - Lab 11/19/16 03:44 11/19/16 03:44 Most recent lab results Calcium 8.4 mg/dL (8.6-10.8) L 11/19/16 03:44 Phosphorus 2.5 mg/dL (2.3-4.7) 11/19/16 03:44 Magnesium 1.5 mg/dL (1.6-2.6) L 11/19/16 03:44 - VTE Documentation of Mechanical Device: Intermittent pneumatic compression device Consult Discharge Plan - Plan Referrals: Rajendra Mai MD [Non-Partnered Physician] - Willi Cobb DPM [Partnered Physician] - 11/24/16 2:15 pm Eddie Mark MD [Primary Care Provider] - 11/24/16 11:30 am Joe Man MD [Partnered Physician] - 12/09/16 9:45 am
[2016-11-19] MEDS ORDERED: Acetaminophen 325 MG TABLET PO PRN (11:00)
--- NOTE | 2016-11-19 11:01 | Internal Med Progress Note ---
Date of Encounter: 11/19/16 Time of Encounter: 10:56 - Subjective Interval history: Pt seen and examined with present at bedside. Resting in bed, s/p resection of right fifth toe. Pt tolerated the procedure well and currently resting in bed. Noted to have a low grade fever earlier this morning, was started on empiric IV abx by vascular surgery. Will obtain pancultures and UA Medicine consulted for management with co-morbidities - Assessment and Plan (1) Peripheral Artery disease Current Visit: Yes Status: Acute Assessment and plan: Plan as per primary team (podiatry) and vascular surgery POD #2 RLE revascularization s/p resection of right fifth gangrenoos toe (11/19/16) H&H low but acceptable pain control Post op fever, f/u llanes cultures and continue empiric antibiotic therapy will de-escalate therapy as per culture report Tylenol 650mg PO q6h prn fever will closely monitor (2) Type 2 diabetes mellitus Current Visit: Yes Status: Acute Assessment and plan: Hold oral antihyperglycemic agents BG within acceptable range continue ss insulin algorithm monitor FS and BG Qualifiers: Diabetes mellitus complication status: with unspecified complications Diabetes mellitus emt intermediate insulin use: without chcf use Qualified Code( s): E11.8 - Type 2 diabetes mellitus with unspecified complications (3) Hypertension Current Visit: Yes Status: Acute Assessment and plan: BP within acceptable range continue to closely monitor added Parameters to Amlodipine and coreg dosing continue to hold Lasix and Lisinopril Qualifiers: Hypertension type: essential hypertension Qualified Code(s): I10 - Essential (primary) hypertension (4) CAD (coronary artery disease) Current Visit: Yes Status: Acute Assessment and plan: Patient with CAD s/p 4-vessel CABG and stent placements. Patient denies any chest pain. EKG shows sinus bradycardia with 1st degree AV block, no ST elevations or depressions. Will continue beta naomie, aspirin, and statin. Cardiology on board Qualifiers: Coronary Disease-Associated Artery/Lesion type: [place] artery [place] vs. transplanted heart: [place] heart Associated angina: angina presence unspecified Qualified Code(s): I25.10 - Atherosclerotic heart disease of [place] coronary artery without angina pectoris (5) CKD (chronic kidney disease) Current Visit: Yes Status: Chronic Assessment and plan: continue to hold Lasix and Lisinopril at this time Nephrology on board Qualifiers: Chronic kidney disease stage: stage 4 (severe) Qualified Code(s): N18.4 - Chronic kidney disease, stage 4 (severe) (6) DVT prophylaxis Current Visit: Yes Status: Acute Assessment and plan: EPCD Heparin SQ once cleared by surgery (7) Atrial Fibrillation Current Visit: Yes Status: Chronic Assessment and plan: Rate controlled with BB ASA for CVA ppx not a candidate for chcf anticoagulation given risk of falls - Constitutional Vitals: Temp Pulse Resp BP Pulse Ox 100.1 F H 81 18 127/61 100 11/19/16 03:40 11/19/16 10:30 11/19/16 10:30 11/19/16 10:30 11/19/16 10:30 General appearance: Present: A&O X 3, pleasant, no acute distress - Head Head exam: Present: atraumatic, normocephalic - Eye Eye exam: Present: conjuntiva pink, sclera anicteric - Respiratory Respiratory exam: Absent: respiratory distress, wheezes - Cardiovascular Cardiovascular exam: Present: RRR, +S1, +S2. Absent: diastolic murmur, gallop, rubs, systolic murmur - GI/Abdominal GI/Abdominal exam: Present: normal bowel sounds, soft, no peritoneal signs. Absent: distended, tenderness - Extremities Exam Extremities exam: Present: warm, radial pulses palpable and symetrical (Rt foot wrapped in dressing, mild LLE edema ) - Neurological Exam Neurological exam: Present: alert, oriented X3 - Psychiatric Psychiatric exam: Present: normal affect, normal mood Internal Medicine: Result - Labs CBC & Chem 7: 11/19/16 03:44 11/19/16 03:44 Labs: Short CBC 11/19/16 Range/Units 03:44 WBC 6.4 (4.3-11.1) K/mcL Hgb 8.2 L (12.9-16.9) g/dL Hct 26.0 L (37.5-50.1) % Plt Count 233 (140-400) K/mcL Neutrophils # 5.0 (1.6-8.9) K/mcL BMP 11/19/16 03:44 Sodium 139 Potassium 3.9 Chloride 108 Carbon Dioxide 22 BUN 23 Creatinine 1.79 H Glucose 132 H Calcium 8.4 L - ABG Interpretation ABG results: PT/INR, D-dimer PT 13.1 Seconds (9.4-12.1) H 11/16/16 09:18 - VTE Documentation of Mechanical Device: Intermittent pneumatic compression device Consult Discharge Plan - Plan Referrals: Rajendra Mai MD [Non-Partnered Physician] - Willi Cobb DPM [Partnered Physician] - 11/24/16 2:15 pm Eddie Mark MD [Primary Care Provider] - 11/24/16 11:30 am Joe Man MD [Partnered Physician] - 12/09/16 9:45 am
--- NOTE | 2016-11-19 11:52 | Vascular/Endovas Progress Note ---
Date of Encounter: 11/19/16 Time of Encounter: 11:48 - Assessment and plan (1) PAD (peripheral artery disease) Current Visit: Yes Status: Chronic Postoperative day #2 following right lower extremity revascularization. Patent bypass graft. (2) Gangrene of toe Current Visit: Yes Status: Acute Status post right fifth metatarsal surgery with gangrenous changes of right fifth toe and discolored adjacent toes. Status post toe amputation earlier today. (3) CKD (chronic kidney disease) Current Visit: Yes Status: Chronic Renal function continues to improve with perioperative hydration. Qualifiers: Chronic kidney disease stage: stage 4 (severe) Qualified Code(s): N18.4 - Chronic kidney disease, stage 4 (severe) - Subjective Interval history: Mr. Lynch is postoperative day #2 from a right femoral tibial bypass graft with endarterectomies. Earlier this morning he had undergone a total amputation with Dr. Cobb. The patient has no complaints referable to the bypass graft. Vital Signs, Last 4 Hours Pulse Resp BP Pulse Ox 11/19/16 11:15 81 18 127/67 100 11/19/16 11:00 73 18 128/62 100 11/19/16 10:45 73 18 131/64 100 11/19/16 10:30 81 18 127/61 100 11/19/16 10:15 70 18 127/101 99 11/19/16 10:13 69 18 127/95 100 - Physical Examination General: Present: Conversant, No Apparent Distress Vascular: Present: Normal capillary refill, Surgical incisions (The right groin and right Surgical incisions were inspected. They're clean and dry and healing well. There is no signs of hematoma or seroma or infection.) - VTE Documentation of Mechanical Device: Intermittent pneumatic compression device Results 11/19/16 03:44 11/19/16 03:44 Lab Results, Last 24 hours 11/19/16 11/19/16 03:44 03:44 WBC 6.4 Hgb 8.2 L Hct 26.0 L Plt Count 233 Sodium 139 Potassium 3.9 Chloride 108 Carbon Dioxide 22 BUN 23 Creatinine 1.79 H Glucose 132 H Calcium 8.4 L Magnesium 1.5 L Consult Discharge Plan - Plan Referrals: Rajendra Mai MD [Non-Partnered Physician] - Willi Cobb DPM [Partnered Physician] - 06/27/17 2:15 pm Eddie Mark MD [Primary Care Provider] - 11/24/16 11:30 am Joe Man MD [Partnered Physician] - 12/09/16 9:45 am
[2016-11-19] MEDS: Aspirin Enteric Coated 81 MG Tablet PO SCH (15:52)
--- NOTE | 2016-11-19 16:08 | Orthopedic Operative Note ---
Date of procedure: 11/19/16 Pre-op diagnosis: #1 Gangrene toe #5 right foot #2 open wound right foot Post-op diagnosis: same Procedure: 11/19/16 16:04 #1 incision and drainage right foot #2 amputation toe #2 right foot Implants: None Complications: None Anesthesia: MAC, local Local Anesthetics: 0.25% Sensorcaine HCL SubQ (cc) Surgeon: Willi Cobb Estimated blood loss (cc): 5 Tourniquet Time (Minutes): 0 Specimen: Toe #5 Condition: stable Disposition: floor Procedure in Detail: 11/19/16 16:05 Details in summary of procedure: The patient was brought to the surgical suite. A sign in procedure was performed. The patient was then transferred to the surgical table and positioned properly safely and securely. The right foot was elevated on a foam block. Anesthetic timeout was taken. The right foot and ankle were then prepped with alcohol 3 times. A modified ankle block was carried out without difficulty or complication. The right foot was then prepped and draped in usual sterile manner. Surgical timeout was taken. A standard incision was then begun at the sulcus of the fifth toe and brought circumferentially about the toe in a racquet type incision meeting on the dorsal aspect of the base of the fifth toe and then proximally where 2 incisions were made along the previous incision to gain a fresh skin edge on the medial and lateral edge of the previous incision for the metatarsal head resection performed several weeks ago. Incision was taken directly down to bone. The toe was then extirpated disarticulated by dividing the capsular structures without difficulty or complication. There is no purulent drainage. This is an ischemic wound. After debridement of soft tissue with a pickup and scissor and ultrasonics Misonic debrider the wound was found to be clean without any evidence of necrosis. The wound edges were bleeding freely without necessitating use of Bovie ligature. The wound was healthy in appearance. Distal aspect of the fifth metatarsal is of normal color texturing density. Previous antibiotic beads were placed were removed during irrigation. Satisfied we had a clean wound and every respect we then closed the wound with Vicryl deep sutures 2 and skin was repaired with 2-0 and 3-0 Prolene, without tension. The wound was then dressed with Adaptic 4 x 4's Kerlix with mild compression. Capillary amount time was noted to be less than 2 seconds to all toes #1234 of the right foot. Patient tolerated the procedure well and was sent to the holding room in good condition with vital signs stable. Estimated blood loss less than 10 mL
[2016-11-19 16:16] LABS: Bilirubin,Urine Negative (Negative); Blood,Urine Trace (Negative); Clarity,Urine Clear (Clear); Color,Urine Yellow (Yellow); Glucose,Urine (UA) Normal (Normal); Ketones,Urine Negative (Negative); Leukocyte Esterase,Urine Negative (Negative); Nitrite,Urine Negative (Negative); Protein,Urine 30 mg/dL (Neg-Trace); Specific Gravity,Urine 1.021 (1.010-1.025); Urobilinogen,Urine Normal (Normal)
[2016-11-19 16:19] LABS: Bacteria,Urine None Seen per hpf (None-Few); Hyaline Casts,Urine None Seen per lpf (None-Few); Squamous Epithelial Cell,Urine Moderate per lpf (None-Few); WBC,Urine 0-3 per hpf (0-3)
[2016-11-19] MEDS ORDERED: Insulin LISPRO 300 UNITS/3 ML VIAL SQ SCH (21:00)
[2016-11-20] MEDS: 0.9 % Sodium Chloride 1,000 ML IVC SCH (05:45)
[2016-11-20 06:11] LABS: Basophils % 0.2 %; Eosinophils # 0.4 K/mcL (0.0-0.6); Eosinophils % 5.9 %; Hematocrit 21.8 % (37.5-50.1); Immature Granulocytes % 1.1 % (0-4); Lymphocytes # 0.7 K/mcL (0.6-4.6); Lymphocytes % 10.7 %; Mean Corpuscular HGB Conc 32.1 g/dL (31.6-35.5); Mean Corpuscular Hemoglobin 26.5 pg (28.0-33.3); Mean Corpuscular Volume 82.6 fL (83.0-100.0); Mean Platelet Volume 10.1 fL (9.4-12.4); Monocytes # 0.5 K/mcL (0.0-1.3); Monocytes % 7.3 %; Neutrophils # 4.7 K/mcL (1.6-8.9); Platelet Count 187 K/mcL (140-400); Red Blood Count 2.64 M/mcL (4.19-5.50); Red Cell Distribution Width 14.1 % (11.5-14.5); Segmented Neutrophils % 74.8 %
[2016-11-20] MEDS: *HR* Heparin 5,000 UNIT/ML VIAL SQ SCH (06:22)
[2016-11-20 06:23] LABS: Magnesium 1.6 mg/dL (1.6-2.6); Phosphorous 2.3 mg/dL (2.3-4.7); Potassium 4.1 mEq/L (3.5-4.5)
[2016-11-20] MEDS: Insulin LISPRO 300 UNITS/3 ML VIAL SQ SCH ×2 (07:33→11:43)
[2016-11-20] MEDS: Aspirin Enteric Coated 81 MG Tablet PO SCH (07:39)
[2016-11-20] MEDS: Piperacillin/Tazobactam 3.375 GM in D5% in Water (Mini-Bag+) 100 ML IVPB SCH (07:39)
[2016-11-20 09:02] LABS: Basophils % 0.2 %; Eosinophils # 0.3 K/mcL (0.0-0.6); Eosinophils % 5.4 %; Hematocrit 22.9 % (37.5-50.1); Hemoglobin 7.3 g/dL (12.9-16.9); Lymphocytes # 0.5 K/mcL (0.6-4.6); Lymphocytes % 9.4 %; Mean Corpuscular HGB Conc 31.9 g/dL (31.6-35.5); Mean Corpuscular Hemoglobin 26.4 pg (28.0-33.3); Mean Corpuscular Volume 82.7 fL (83.0-100.0); Mean Platelet Volume 8.9 fL (9.4-12.4); Monocytes # 0.4 K/mcL (0.0-1.3); Monocytes % 6.4 %; Neutrophils # 4.5 K/mcL (1.6-8.9); Platelet Count 179 K/mcL (140-400); Red Blood Count 2.77 M/mcL (4.19-5.50); Red Cell Distribution Width 14.2 % (11.5-14.5); Segmented Neutrophils % 77.6 %
[2016-11-20] MEDS: *HR* Acetaminophen w/Cod 300-30 mg 1 TAB TABLET PO PRN (11:42)
--- NOTE | 2016-11-20 11:47 | Internal Med Progress Note ---
Date of Encounter: 11/20/16 Time of Encounter: 11:06 (.) - Subjective Interval history: Pt seen and examined with present at bedside. Resting in bed, s/p resection of right fifth toe (11/19/16) Pt noted to have drop in H&H this morning. Clinically asymptomatic and reports of pain being adequately controlled. No repeat fevers reported Medicine consulted for management with co-morbidities - Assessment and Plan (1) Peripheral Artery disease Current Visit: Yes Status: Acute Assessment and plan: Plan as per primary team (podiatry) and vascular surgery POD #3 RLE revascularization s/p resection of right fifth gangrenoos toe POD #1 H&H low but acceptable pain control Post op fever resolved, Urine culture negative, will follow up blood cultures. 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 Patient denies any chest pain. EKG shows sinus bradycardia with 1st degree AV block, no ST elevations or depressions. Will continue beta naomie, aspirin, and statin. Qualifiers: Coronary Disease-Associated Artery/Lesion type: [place] artery [place] vs. transplanted heart: [place] heart Associated angina: angina presence unspecified Qualified Code(s): I25.10 - Atherosclerotic heart disease of [place] coronary artery without angina pectoris (5) CKD (chronic kidney disease) Current Visit: Yes Status: Chronic Assessment and plan: continue to hold Lasix and Lisinopril at this time Nephrology on board Qualifiers: Chronic kidney disease stage: stage 4 (severe) Qualified Code(s): N18.4 - Chronic kidney disease, stage 4 (severe) (6) DVT prophylaxis Current Visit: Yes Status: Acute Assessment and plan: Heparin SQ (7) Atrial Fibrillation Current Visit: Yes Status: Chronic Assessment and plan: Rate controlled with BB ASA for CVA ppx not a candidate for chcf anticoagulation given risk of falls (8) Anemia Current Visit: Yes Status: Acute Assessment and plan: Likely acute blood loss anemia given recent procedure will transfuse two unit PRBC at this time will closely monitor no acute bleeding reported at this time. - Constitutional Vitals: Temp Pulse Resp BP Pulse Ox 98.0 F 64 18 126/66 100 11/20/16 11:02 11/20/16 11:02 11/20/16 11:02 11/20/16 11:02 11/20/16 11:02 General appearance: Present: A&O X 3, pleasant, no acute distress - Head Head exam: Present: atraumatic, normocephalic - Eye Eye exam: Present: normal appearance, conjuntiva pink, sclera anicteric - Respiratory Respiratory exam: Present: CTAB. Absent: respiratory distress, wheezes - Cardiovascular Cardiovascular exam: Present: RRR, +S1, +S2. Absent: diastolic murmur, gallop, rubs, systolic murmur - GI/Abdominal GI/Abdominal exam: Present: normal bowel sounds, soft, no peritoneal signs. Absent: distended, tenderness - Extremities Exam Extremities exam: Present: warm, radial pulses palpable and symetrical (RLE dressing intact, mild edema in LLE ) - Neurological Exam Neurological exam: Present: alert, oriented X3 - Psychiatric Psychiatric exam: Present: normal affect, normal mood Internal Medicine: Result - Labs CBC & Chem 7: 11/20/16 08:55 11/20/16 05:38 Labs: Short CBC 11/20/16 11/20/16 Range/Units 05:38 08:55 WBC 6.3 5.8 (4.3-11.1) K/mcL Hgb 7.0 L 7.3 L (12.9-16.9) g/dL Hct 21.8 L 22.9 L (37.5-50.1) % Plt Count 187 179 (140-400) K/mcL Neutrophils # 4.7 4.5 (1.6-8.9) K/mcL BMP 11/20/16 05:38 Sodium 140 Potassium 4.1 Chloride 113 H Carbon Dioxide 22 BUN 20 Creatinine 1.49 H Glucose 107 H Calcium 8.0 L Urine 11/19/16 Range/Units 07:52 Urine Color Yellow (Yellow) Urine Clarity Clear (Clear) Urine pH 6.0 (5.0-8.0) pH Units Ur Specific [place] 1.021 (1.010-1.025) Urine Protein 30 H (Neg-Trace) mg/dL Urine Glucose (UA) Normal (Normal) mg/dL - ABG Interpretation ABG results: PT/INR, D-dimer PT 13.1 Seconds (9.4-12.1) H 11/16/16 09:18 - VTE Documentation of Mechanical Device: Intermittent pneumatic compression device Consult Discharge Plan - Plan Referrals: Rajendra Mai MD [Non-Partnered Physician] - Willi Cobb DPM [Partnered Physician] - 11/24/16 2:15 pm Eddie Mark MD [Primary Care Provider] - 11/24/16 11:30 am Joe Man MD [Partnered Physician] - 12/09/16 9:45 am
[2016-11-20] MEDS ORDERED: 0.9 % Sodium Chloride 250 ML ONE (12:49)
--- NOTE | 2016-11-20 16:08 | Discharge Summary ---
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 Qualified Code( s): E11.8 - Type 2 diabetes mellitus with unspecified complications (2) Gangrene of toe Priority: Primary Status: Acute - Discharge Medications Prescriptions: Amoxicillin [Amoxil] 500 mg PO BID #20 capsule Home Medications: Amoxicillin [Amoxil] 500 mg PO BID 11/05/16 [History] Aspirin [Lo-Dose Aspirin EC] 81 mg PO DAILY 11/05/16 [History] Carvedilol [Coreg] 25 mg PO BID 11/05/16 [History] Cholecalciferol (D-3) [Vitamin D] 1,000 mg PO DAILY 11/05/16 [History] Furosemide [Lasix] 80 mg PO BID 11/05/16 [History] HYDROcodone/Acet 5/325 mg [[place] 5-325 mg] 1 tab PO Q6H PRN #28 tab 11/05/16 [Rx ] Lisinopril [Zestril] 20 mg PO DAILY 11/05/16 [History] Multivit-Min/FA/Lycopen/Lutein [Centrum Silver Tablet] 1 tab PO DAILY 11/05/16 [ History] Tamsulosin [Flomax] 0.8 mg PO DAILY 11/05/16 [History] amLODIPine [Norvasc] 5 mg PO DAILY 11/05/16 [History] metFORMIN [Glucophage] 500 mg PO BIDWM 11/05/16 [History] Ferrous Sulfate [Iron] 325 mg PO TID 11/16/16 [History] Simvastatin [Zocor] 20 mg PO HS 11/16/16 [History] Amoxicillin [Amoxil] 500 mg PO BID #20 capsule 11/20/16 [Rx] Allergies/Adverse Reactions: Allergies Hydromorphone [From Dilaudid] Allergy (Verified 11/17/16 09:41) Hallucinating morphine Allergy (Verified 11/16/16 13:21) Hallucinating Has taken hydrocodone with no hallucinations Oxycodone [From Percocet] Allergy (Verified 11/17/16 09:41) Hallucinating Penicillins [PCN] Allergy (Verified 11/05/16 08:42) Hives fentanyl Adverse Reaction (Verified 11/17/16 23:46) Hallucinating haloperidol [From Haldol] Adverse Reaction (Verified 11/17/16 23:46) Hallucinating ketorolac [From Toradol] Adverse Reaction (Verified 11/17/16 23:49) Hallucinating tramadol Adverse Reaction (Verified 11/17/16 23:49) Hallucinating Procedures and tests throughout hospitalization: Short CBC 11/20/16 11/20/16 Range/Units 08:55 05:38 WBC 5.8 6.3 (4.3-11.1) K/mcL Hgb 7.3 L 7.0 L (12.9-16.9) g/dL Hct 22.9 L 21.8 L (37.5-50.1) % Plt Count 179 187 (140-400) K/mcL Neutrophils # 4.5 4.7 (1.6-8.9) K/mcL BMP 11/20/16 Range/Units 05:38 Sodium 140 (136-145) mEq/L Potassium 4.1 (3.5-4.5) mEq/L Chloride 113 H (98-109) mEq/L Carbon Dioxide 22 (19-29) mEq/L BUN 20 (8-26) mg/dL Creatinine 1.49 H (0.72-1.25) mg/dL Glucose 107 H (70-99) mg/dL Calcium 8.0 L (8.6-10.8) mg/dL All Lab Results (24 Hours) 11/16/16 11/18/16 11/19/16 Range/Units 17:40 16:06 20:24 WBC (4.3-11.1) K/mcL RBC (4.19-5.50) M/mcL Hgb (12.9-16.9) g/dL Hct (37.5-50.1) % MCV (83.0-100.0) fL MCH (28.0-33.3) pg MCHC (31.6-35.5) g/dL RDW (11.5-14.5) % Plt Count (140-400) K/mcL MPV (9.4-12.4) fL Immature Gran % (0-4) % Seg Neutrophils % % Lymphocytes % % Monocytes % % Eosinophils % % Basophils % % Neutrophils # (1.6-8.9) K/mcL Lymphocytes # (0.6-4.6) K/mcL Monocytes # (0.0-1.3) K/mcL Eosinophils # (0.0-0.6) K/mcL Basophils # (0.0-0.2) K/mcL Sodium (136-145) mEq/L Potassium (3.5-4.5) mEq/L Chloride (98-109) mEq/L Carbon Dioxide (19-29) mEq/L BUN (8-26) mg/dL Creatinine (0.72-1.25) mg/dL Est GFR ( Amer) (> 60) Est GFR (Non-Af Amer) (> 60) BUN/Creatinine Ratio (6-26) Glucose (70-99) mg/dL POC Glucose 118 H 174 H (58-89) Calculated Osmolality (280-300) Calcium (8.6-10.8) mg/dL Phosphorus (2.3-4.7) mg/dL Magnesium (1.6-2.6) mg/dL Blood Type O POSITIVE Antibody Screen NEGATIVE Crossmatch See Detail 11/20/16 11/20/16 11/20/16 Range/Units 05:38 05:38 08:55 WBC 6.3 5.8 (4.3-11.1) K/mcL RBC 2.64 L 2.77 L (4.19-5.50) M/mcL Hgb 7.0 L 7.3 L (12.9-16.9) g/dL Hct 21.8 L 22.9 L (37.5-50.1) % MCV 82.6 L 82.7 L (83.0-100.0) fL MCH 26.5 L 26.4 L (28.0-33.3) pg MCHC 32.1 31.9 (31.6-35.5) g/dL RDW 14.1 14.2 (11.5-14.5) % Plt Count 187 179 (140-400) K/mcL MPV 10.1 8.9 L (9.4-12.4) fL Immature Gran % 1.1 1.0 (0-4) % Seg Neutrophils % 74.8 77.6 % Lymphocytes % 10.7 9.4 % Monocytes % 7.3 6.4 % Eosinophils % 5.9 5.4 % Basophils % 0.2 0.2 % Neutrophils # 4.7 4.5 (1.6-8.9) K/mcL Lymphocytes # 0.7 0.5 L (0.6-4.6) K/mcL Monocytes # 0.5 0.4 (0.0-1.3) K/mcL Eosinophils # 0.4 0.3 (0.0-0.6) K/mcL Basophils # 0.0 0.0 (0.0-0.2) K/mcL Sodium 140 (136-145) mEq/L Potassium 4.1 (3.5-4.5) mEq/L Chloride 113 H (98-109) mEq/L Carbon Dioxide 22 (19-29) mEq/L BUN 20 (8-26) mg/dL Creatinine 1.49 H (0.72-1.25) mg/dL Est GFR ( Amer) 55 L (> 60) Est GFR (Non-Af Amer) 45 L (> 60) BUN/Creatinine Ratio 13 (6-26) Glucose 107 H (70-99) mg/dL POC Glucose (58-89) Calculated Osmolality 293 (280-300) Calcium 8.0 L (8.6-10.8) mg/dL Phosphorus 2.3 (2.3-4.7) mg/dL Magnesium 1.6 (1.6-2.6) mg/dL Blood Type Antibody Screen Crossmatch Foot X-Ray 11/16/16 08:40 IMPRESSION: Other than a change in the configuration of the multiple high-density foci near the metatarsal-phalangeal joint of the 5th toe, there has been no gross interval change since the prior examination. Given the overlap of these high-density foci on the prior examination, a subtle increase in the bone destruction/ erosion at this site would be difficult to exclude entirely. D/ / Gary Mccrary / Gary Mccrary Interpreting Provider: Gary Mccrary Labs on day of discharge: Labs from last 24 hours 11/20/16 11/20/16 11/20/16 08:55 05:38 05:38 WBC 5.8 6.3 RBC 2.77 L 2.64 L Hgb 7.3 L 7.0 L Hct 22.9 L 21.8 L MCV 82.7 L 82.6 L MCH 26.4 L 26.5 L MCHC 31.9 32.1 RDW 14.2 14.1 Plt Count 179 187 MPV 8.9 L 10.1 Immature Gran % 1.0 1.1 Seg Neutrophils % 77.6 74.8 Lymphocytes % 9.4 10.7 Monocytes % 6.4 7.3 Eosinophils % 5.4 5.9 Basophils % 0.2 0.2 Neutrophils # 4.5 4.7 Lymphocytes # 0.5 L 0.7 Monocytes # 0.4 0.5 Eosinophils # 0.3 0.4 Basophils # 0.0 0.0 Sodium 140 Potassium 4.1 Chloride 113 H Carbon Dioxide 22 BUN 20 Creatinine 1.49 H Est GFR ( Amer) 55 L Est GFR (Non-Af Amer) 45 L BUN/Creatinine Ratio 13 Glucose 107 H POC Glucose Calculated Osmolality 293 Calcium 8.0 L Phosphorus 2.3 Magnesium 1.6 Urine Color Urine Clarity Urine pH Ur Specific [place] Urine Protein Urine Glucose (UA) Urine Ketones Urine Blood Urine Nitrite Urine Bilirubin Urine Urobilinogen Ur Leukocyte Esterase Urine Microscopic RBC Urine Microscopic WBC Ur Squamous Epith Cells Urine Bacteria Hyaline Casts Blood Type Antibody Screen Crossmatch 11/19/16 11/19/16 11/19/16 20:24 15:49 10:22 WBC RBC Hgb Hct MCV MCH MCHC RDW Plt Count MPV Immature Gran % Seg Neutrophils % Lymphocytes % Monocytes % Eosinophils % Basophils % Neutrophils # Lymphocytes # Monocytes # Eosinophils # Basophils # Sodium Potassium Chloride Carbon Dioxide BUN Creatinine Est GFR ( Amer) Est GFR (Non-Af Amer) BUN/Creatinine Ratio Glucose POC Glucose 174 H 208 H 125 H Calculated Osmolality Calcium Phosphorus Magnesium Urine Color Urine Clarity Urine pH Ur Specific [place] Urine Protein Urine Glucose (UA) Urine Ketones Urine Blood Urine Nitrite Urine Bilirubin Urine Urobilinogen Ur Leukocyte Esterase Urine Microscopic RBC Urine Microscopic WBC Ur Squamous Epith Cells Urine Bacteria Hyaline Casts Blood Type Antibody Screen Crossmatch 11/19/16 11/19/16 11/18/16 07:52 05:20 16:06 WBC RBC Hgb Hct MCV MCH MCHC RDW Plt Count MPV Immature Gran % Seg Neutrophils % Lymphocytes % Monocytes % Eosinophils % Basophils % Neutrophils # Lymphocytes # Monocytes # Eosinophils # Basophils # Sodium Potassium Chloride Carbon Dioxide BUN Creatinine Est GFR ( Amer) Est GFR (Non-Af Amer) BUN/Creatinine Ratio Glucose POC Glucose 135 H 118 H Calculated Osmolality Calcium Phosphorus Magnesium Urine Color Yellow Urine Clarity Clear Urine pH 6.0 Ur Specific [place] 1.021 Urine Protein 30 H Urine Glucose (UA) Normal Urine Ketones Negative Urine Blood Trace H Urine Nitrite Negative Urine Bilirubin Negative Urine Urobilinogen Normal Ur Leukocyte Esterase Negative Urine Microscopic RBC 5-15 H Urine Microscopic WBC 0-3 Ur Squamous Epith Cells Moderate H Urine Bacteria None Seen Hyaline Casts None Seen Blood Type Antibody Screen Crossmatch 11/16/16 17:40 WBC RBC Hgb Hct MCV MCH MCHC RDW Plt Count MPV Immature Gran % Seg Neutrophils % Lymphocytes % Monocytes % Eosinophils % Basophils % Neutrophils # Lymphocytes # Monocytes # Eosinophils # Basophils # Sodium Potassium Chloride Carbon Dioxide BUN Creatinine Est GFR ( Amer) Est GFR (Non-Af Amer) BUN/Creatinine Ratio Glucose POC Glucose Calculated Osmolality Calcium Phosphorus Magnesium Urine Color Urine Clarity Urine pH Ur Specific [place] Urine Protein Urine Glucose (UA) Urine Ketones Urine Blood Urine Nitrite Urine Bilirubin Urine Urobilinogen Ur Leukocyte Esterase Urine Microscopic RBC Urine Microscopic WBC Ur Squamous Epith Cells Urine Bacteria Hyaline Casts Blood Type O POSITIVE Antibody Screen NEGATIVE Crossmatch See Detail - Impressions ITS Impressions Foot X-Ray 11/16/16 08:40 IMPRESSION: Other than a change in the configuration of the multiple high-density foci near the metatarsal-phalangeal joint of the 5th toe, there has been no gross interval change since the prior examination. Given the overlap of these high-density foci on the prior examination, a subtle increase in the bone destruction/ erosion at this site would be difficult to exclude entirely. D/ / Gary Mccrary / Gary Mccrary Interpreting Provider: Gary Mccrary Date of admission: 11/17/16 17:01 Primary care physician: Eddie Mark MD Consults: 11/16/16 15:40 Consult to Cardiology [CONS] Routine Comment: Consulting Provider: Cardiology Darby Reason for Consult: History of aortic valve replacement and coronary artery disease with CHF and previous myocardial infarction. Plan for right lower extremity bypass surgery under general anesthesia for tomorrow afternoon Call Completed: Yes Discharging clinician: Tash Story Anticipated date of discharge: 11/20/16 - Patient Status Disposition: Home, Self-Care Condition: Good Functional capacity at discharge: uses cane/walker Overall status at discharge: patient is progressing back to baseline - Discharge Instructions Instructions: Peripheral Vascular Disorders (DC), Anemia (GEN) Follow Up With: Rajendra Mai MD [Non-Partnered Physician] - Willi Cobb DPM [Partnered Physician] - 11/24/16 2:15 pm Eddie Mark MD [Primary Care Provider] - 11/24/16 11:30 am Joe Man MD [Partnered Physician] - 12/09/16 9:45 am - Diet and Activity Activity: other (Limit weight bearing to RLE, weight to heel only. Ambulate only with post op shoe) Diet: advance to your usual diet - Hospital Course Hospital course: Mr. Lynch is a 81 year old male admitted on 11/16 patient has history of hypertension type 2 diabetes CADD CK DM PAD. Patient recently had ulceration to right foot submetatarsal head 5 with recent resection of metatarsal head 5. Patient returned to [facility] on 11/16 with jose martin gangrene of digit 5 right foot patient was complaining of right leg pain patient underwent arterial studies which showed noncompressible vessels. Vascular was consulted and patient underwent a right for femoral to tibial bypass, a right common and deep femoral artery endarterectomy, a right popliteal artery and tibial perineal trunk artery endarterectomy per citlaly. Patient has recovered well. Denies any issues with incision lines. Extremity is pink warm and Refill time is less than 3 seconds. Patient denies any pain to extremity. Patient then underwent an amputation of toe [address] Cobb on 11/19. Sutures were placed incision line. Surgery site was examined today at bedside. Appears to be healing without issue. Foot is warm and pink no issues noted to incisional line. No drainage at this time. Pulses are palpable. Incision line intact. Patient denies any pain. There is noted to be a drop in hemoglobin today. Hemoglobin of 11/19 was noted to be 8.2, today 7.3, internal medicine wrote for infusion of 2 units of packed red blood cells. During assessment patient was noted to be asymptomatic from anemia. Patient may be discharged after infusion as completely as long as no symptoms of blood loss or low hemoglobin are noted. Patient will go home on amoxicillin 500 mg by mouth. Patient will be seen in outpatient podiatry clinic next week. We will need to call for appointment. Patient will need to follow up with vascular. Patient will need to follow up with primary care provider for management of care. Call with any fevers, chills, nausea, vomiting, flulike symptoms, or calf pain.. Call with any heavy bleeding to surgery site. Call with any changes of sensation or color to toes. Time spent discussing smoking cessation with patient: more than 10 minutes - Time Spent with Patient Total time spent providing and/or coordinating discharge services: Less than 30 minutes - VTE Documentation of Mechanical Device: Intermittent pneumatic compression device
[2016-11-20 16:50] VITALS: BP 124/73
== END 2016-11-20 17:45 | disposition home or self-care (01) | DRG 253 ==
LOC: INTOOBSV 08:33 → SUATTDRO 08:33 → 2NNU 08:33
PROVIDERS: ADMIT Podiatrist Foot Surgery; ATTEND Podiatrist Foot Surgery